=== PATIENT | male | born 1990 | race Asian ===

== ENCOUNTER 2019-02-13 17:34 | Inpatient (IN) ==
[2019-02-13] MEDS ORDERED: SODIUM CHLORIDE 0.9% 1000ML 2,000 ML IV ONE (17:53)
[2019-02-13] MEDS ORDERED: ONDANSETRON INJ 2 MG/ML 2 ML VIAL IV STA (17:53)
[2019-02-13] MEDS ORDERED: NovoLIN-R INSULIN PER UNIT CHARGE IV STA (17:53)
[2019-02-13 18:38] LABS: Hematocrit (blood only) 54.2 % (42-52); Hemoglobin 16.7 g/dL (14.0-18.0); Immature Granulocytes # (auto) 0.03 K/uL (0.00-0.02); Immature Granulocytes % (auto) 0.3 %; Lymphocytes # (auto) 0.74 K/uL (1.2-3.4); Lymphocytes % (auto) 8.1 %; Mean Corpuscular Hemoglobin 33.3 pg (25-34); Mean Corpuscular Hgb Conc 30.8 g/dL (32-36); Mean Platelet Volume 12.7 fL (7.4-10.4); Monocytes # (auto) 0.73 K/uL (0.11-0.59); Neutrophils # (auto) 7.67 K/uL (1.4-6.5); Neutrophils % (auto) 83.6 %; Platelet Count 312 K/uL (130-400); RDW Coefficient of Variation 12.5 % (11.5-14.5); RDW Standard Deviation 49.2 fL (36.4-46.3); Red Blood Count 5.02 M/uL (4.7-6.1); White Blood Count 9.17 K/uL (4.8-10.8)
[2019-02-13 18:46] LABS: Base Excess VBG 2.7 mEq/L; Oxygen Saturation VBG 88.1 %; pH VBG 7.47 (7.36-7.41)
--- NOTE | 2019-02-13 18:56 | Emergency Department Note ---
Entered by Glenda Espinoza acting as a scribe for Edgar Robertson MD History of Present Illness General Chief complaint: Hyperglycemia Stated complaint: KEEPS DRINKING SWEET DRINKS, THINKS HAS DIABETES Time Seen by Provider: 02/13/19 17:49 History of Present Illness Provider complaint: hyperglycemia Onset (ago): unknown Pain Consistency: + other (episode) Quality: + other (hyperglycemia) Associated symptoms: + denies other symptoms (vomiting today) and + other (seeking out sugary drinks for the past week, blurry vision, mouth is atmospheric drier tender than usual, urinating more frequently, vomited once yesterday after he had a sip of water that "tasted weird," thinks he has diabetes becuase his mother and father have it) Treatments prior to arrival: none The patient is a 28 year old male who presents to the ED with complaints of an episode of hyperglycemia that started at an unknown time. The patient states that he has been seeking out sugary drinks for the past week and his vision has been blurry. The patient notes that his mouth has also been much atmospheric drier tender than us ual. The patient states that he has been urinating more frequently and he vomited once yesterday after taking a sip of water that tasted weird. The patient states that he believes he has diabetes because both his mother and father have it. The patient denies vomiting today. The patient denies receiving any treatments prior to arrival. Home Medications Home Medications Medication Instructions Recorded Confirmed Type chlorthalidone 25 mg tablet 25 mg PO DAILY #90 tab 12/29/18 02/13/19 History lisinopril 20 mg tablet 20 mg PO DAILY #90 tab 12/29/18 02/13/19 History Allergies Allergy/AdvReac Type Severity Reaction Status Date / Time No Known Drug Allergies AdvReac Verified 02/13/19 18:39 shellfish derived AdvReac Verified 02/13/19 18:39 Past Med/Surg History Family History Father Diabetes Mother Diabetes Social History Preferred Language: Italian Feels Safe at Home: Yes Smoking Status: Never smoker Review of Systems See HPI for pertinent positives & negatives. and A total of 10 systems reviewed and were otherwise negative Physical Exam Vital Signs Vital Signs - 24 hr 02/13/19 17:38 02/13/19 18:26 02/13/19 18:35 Temperature 36.6 C Temperature Source Oral Sepsis Recent Fever Within 48 Hours No Sepsis New/Unexplained Change in Mental Status No Sepsis Action Taken by Nursing No Action Required Pulse Rate 135 H 135 H 112 H Pulse Rate from SpO2 Sensor Pulse Rhythm Regular Respiratory Rate 18 18 14 Respiratory Effort / Characteristics Non-Labored Spontaneous Respiratory Depth Normal Blood Pressure 134/93 127/91 Blood Pressure Mean 106 103 Blood Pressure Position Sitting Pulse Oximetry 96 96 Oxygen Delivery Method Room Air Room Air Oxygen Flow Rate 02/13/19 18:50 02/13/19 19:00 02/13/19 19:01 Temperature Temperature Source Sepsis Recent Fever Within 48 Hours Sepsis New/Unexplained Change in Mental Status Sepsis Action Taken by Nursing Pulse Rate 110 H 114 H 115 H Pulse Rate from SpO2 Sensor 114 H Pulse Rhythm Respiratory Rate 16 17 16 Respiratory Effort / Characteristics Respiratory Depth Blood Pressure 156/86 H Blood Pressure Mean 109 Blood Pressure Position Pulse Oximetry 78 L 95 95 Oxygen Delivery Method Room Air Nasal Cannula Nasal Cannula Oxygen Flow Rate 2 2 GENERAL: Patient is in no acute distress. HEENT: No acute trauma, normocephalic atraumatic, significantly dry mucous membranes, no nasal congestion, no scleral icterus. NECK: No stridor, no adenopathy, no meningismus, trachea is midline. LUNGS: Clear to auscultation bilaterally, no wheeze, no rhonchi, breath sounds equal. HEART: 2/6 systolic murmur, tachycardic, regular rhythm. ABDOMEN: Soft, nontender, bowel sounds positive, no hernias, no peritonitis. EXTREMITIES: No cyanosis or edema, full range of motion of all the joints without pain or difficulty, no signs for acute trauma. NEUROLOGIC: Oriented x 3, no acute motor or sensory deficits, no focal weakness. SKIN: No rash, no jaundice, no diaphoresis. Course 1750: Past medical records reviewed. The patient was evaluated in room B7. A complete history and physical exam was performed. 1912: The ED electrostatic powder coating technician informed me that the patient's oxygen saturation has been as low as the upper 70's. 1918: I reevaluated the patient and he is doing fine. 1952: I discussed the patient's case with Dr. Zambrano- [facility] Hospitalist. He will evaluate the patient for further management. Consultations Consultation #1: I discussed the patient's case with Dr. Zambrano- [facility] Hospitalist. He will evaluate the patient for further management. Time: 19:53 Administered Medications Insulin Human Regular 250 (units/ Sodium Chloride) 250 mls @ 3.4 mls/hr IV .Q24H CHLOE; Protocol Stop: 03/15/19 20:14 Last Admin: 02/13/19 20:48 Dose: 3.4 units/hr, 3.4 mls/hr Documented by: [id number] Cosigned by: [id number] Discontinued Medications Sodium Chloride (Nss 1000ml) 2,000 mls @ 999 mls/hr IV .Q2H1M ONE Stop: 02/13/19 19:53 Last Infusion: 02/13/19 20:37 Dose: 0 mls/hr Documented by: [id number] Admin: 02/13/19 18:30 Dose: 999 mls/hr Documented by: [id number] Sodium Chloride (Nss 1000ml) 500 mls @ 999 mls/hr IV .Q31M ONE Stop: 02/13/19 19:54 Last Infusion: 02/13/19 21:15 Dose: 0 mls/hr Documented by: [id number] Admin: 02/13/19 20:37 Dose: 999 mls/hr Documented by: [id number] Insulin Human Regular (Novolin R U-100 Per Unit) 10 units IV NOW STA Stop: 02/13/19 17:54 Last Admin: 02/13/19 18:30 Dose: 10 units Documented by: [id number] Cosigned by: [id number] Insulin Human Regular (Novolin R Bolus From Bag) 3.5 units IV NOW STA Stop: 02/13/19 20:57 Last Admin: 02/13/19 20:48 Dose: 3.5 units Documented by: [id number] Cosigned by: [id number] Insulin Human Regular (Novolin R U-100 Per Unit) Confirm Administered Dose 10 units .ROUTE .STK-MED ONE Stop: 02/13/19 21:15 Last Admin: 02/13/19 21:17 Dose: 10 units Documented by: [id number] Cosigned by: [id number] Ondansetron HCl (Zofran) 4 mg IV NOW STA Stop: 02/13/19 17:54 Last Admin: 02/13/19 18:30 Dose: 4 mg Documented by: [id number] Medical Decision Making Differential Diagnosis Differentials include diabetes, dehydration, DKA, hyperglycemia, renal failure, infection, UTI. Medical Records Attestation: I reviewed the patient's medical records. Home Medications Current Medication List: was personally reviewed by me Laboratory Data Attestation: I reviewed the patient's lab results. Result diagrams: 02/13/19 18:22 02/13/19 18:22 Lab Results 02/13/19 02/13/19 02/13/19 Range/Units 17:48 17:50 18:22 WBC (4.8-10.8) K/uL RBC (4.7-6.1) M/uL Hgb (14.0-18.0) g/dL Hct (42-52) % MCV (80-100) fL MCH (25-34) pg MCHC (32-36) g/dL RDW Std Deviation (36.4-46.3) fL RDW Coeff of Amparo (11.5-14.5) % Plt Count (130-400) K/uL MPV (7.4-10.4) fL Immature Gran % (Auto) % Neut % (Auto) % Lymph % (Auto) % [place] % (Auto) % Eos % (Auto) % Baso % (Auto) % Immature Gran # (Auto) (0.00-0.02) K/uL Neut # (Auto) (1.4-6.5) K/uL Lymph # (Auto) (1.2-3.4) K/uL [place] # (Auto) (0.11-0.59) K/uL Eos # (Auto) (0-0.5) K/uL Baso # (Auto) (0-0.2) K/uL VBG pH 7.47 H (7.36-7.41) VBG pCO2 37 L (38-50) mmHg VBG pO2 53 mmHg VBG HCO3 26 mmol/L VBG O2 Saturation 88.1 % VBG Base Excess 2.7 mEq/L Barometric Pressure 732.9 mm/Hg Sodium (136-145) mmol/L Potassium (3.5-5.1) mmol/L Chloride (98-107) mmol/L Carbon Dioxide (21-32) mmol/L Anion Gap (3-11) BUN (7-18) mg/dl Creatinine (0.6-1.4) mg/dl Est Cr Clr Drug Dosing ml/min Est GFR ( Amer) Est GFR (Non-Af Amer) BUN/Creatinine Ratio (10-20) Glucose (70-99) mg/dl POC Glucose > 600 H* > 600 H* (70-99) Calcium (8.5-10.1) mg/dl Phosphorus (2.5-4.9) mg/dl Magnesium (1.8-2.4) mg/dl Total Bilirubin (0.2-1) mg/dl AST (15-37) U/L ALT (12-78) U/L Alkaline Phosphatase (45-117) U/L Total Protein (6.4-8.2) gm/dl Albumin (3.4-5.0) gm/dl Globulin (2.5-4.0) gm/dl Albumin/Globulin Ratio (0.9-2) Beta-Hydroxybutyric Acd (0.2-2.81) mg/dl TSH (0.300-4.500) uIu/ml 02/13/19 02/13/19 02/13/19 Range/Units 18:22 18:22 18:22 WBC 9.17 (4.8-10.8) K/uL RBC 5.02 (4.7-6.1) M/uL Hgb 16.7 (14.0-18.0) g/dL Hct 54.2 H (42-52) % MCV 108.0 H (80-100) fL MCH 33.3 (25-34) pg MCHC 30.8 L (32-36) g/dL RDW Std Deviation 49.2 H (36.4-46.3) fL RDW Coeff of Amparo 12.5 (11.5-14.5) % Plt Count 312 (130-400) K/uL MPV 12.7 H (7.4-10.4) fL Immature Gran % (Auto) 0.3 % Neut % (Auto) 83.6 % Lymph % (Auto) 8.1 % [place] % (Auto) 8.0 % Eos % (Auto) 0.0 % Baso % (Auto) 0.0 % Immature Gran # (Auto) 0.03 H (0.00-0.02) K/uL Neut # (Auto) 7.67 H (1.4-6.5) K/uL Lymph # (Auto) 0.74 L (1.2-3.4) K/uL [place] # (Auto) 0.73 H (0.11-0.59) K/uL Eos # (Auto) 0.00 (0-0.5) K/uL Baso # (Auto) 0.00 (0-0.2) K/uL VBG pH (7.36-7.41) VBG pCO2 (38-50) mmHg VBG pO2 mmHg VBG HCO3 mmol/L VBG O2 Saturation % VBG Base Excess mEq/L Barometric Pressure mm/Hg Sodium 113 L* (136-145) mmol/L Potassium 4.8 (3.5-5.1) mmol/L Chloride 72 L (98-107) mmol/L Carbon Dioxide 25 (21-32) mmol/L Anion Gap 16.0 H (3-11) BUN 46 H (7-18) mg/dl Creatinine 2.74 H (0.6-1.4) mg/dl Est Cr Clr Drug Dosing 41.4 ml/min Est GFR ( Amer) 34.5 Est GFR (Non-Af Amer) 29.7 BUN/Creatinine Ratio 16.9 (10-20) Glucose 1747 H* (70-99) mg/dl POC Glucose (70-99) Calcium 11.6 H (8.5-10.1) mg/dl Phosphorus 3.3 (2.5-4.9) mg/dl Magnesium 2.7 H (1.8-2.4) mg/dl Total Bilirubin 0.8 (0.2-1) mg/dl AST 15 (15-37) U/L ALT 48 (12-78) U/L Alkaline Phosphatase 73 (45-117) U/L Total Protein 8.3 H (6.4-8.2) gm/dl Albumin 4.0 (3.4-5.0) gm/dl Globulin 4.3 H (2.5-4.0) gm/dl Albumin/Globulin Ratio 16.0 H (0.9-2) Beta-Hydroxybutyric Acd 17.98 H (0.2-2.81) mg/dl TSH 1.300 (0.300-4.500) uIu/ml 02/13/19 02/13/19 Range/Units 19:10 19:11 WBC (4.8-10.8) K/uL RBC (4.7-6.1) M/uL Hgb (14.0-18.0) g/dL Hct (42-52) % MCV (80-100) fL MCH (25-34) pg MCHC (32-36) g/dL RDW Std Deviation (36.4-46.3) fL RDW Coeff of Amparo (11.5-14.5) % Plt Count (130-400) K/uL MPV (7.4-10.4) fL Immature Gran % (Auto) % Neut % (Auto) % Lymph % (Auto) % [place] % (Auto) % Eos % (Auto) % Baso % (Auto) % Immature Gran # (Auto) (0.00-0.02) K/uL Neut # (Auto) (1.4-6.5) K/uL Lymph # (Auto) (1.2-3.4) K/uL [place] # (Auto) (0.11-0.59) K/uL Eos # (Auto) (0-0.5) K/uL Baso # (Auto) (0-0.2) K/uL VBG pH (7.36-7.41) VBG pCO2 (38-50) mmHg VBG pO2 mmHg VBG HCO3 mmol/L VBG O2 Saturation % VBG Base Excess mEq/L Barometric Pressure mm/Hg Sodium (136-145) mmol/L Potassium (3.5-5.1) mmol/L Chloride (98-107) mmol/L Carbon Dioxide (21-32) mmol/L Anion Gap (3-11) BUN (7-18) mg/dl Creatinine (0.6-1.4) mg/dl Est Cr Clr Drug Dosing ml/min Est GFR ( Amer) Est GFR (Non-Af Amer) BUN/Creatinine Ratio (10-20) Glucose (70-99) mg/dl POC Glucose > 600 H* > 600 H* (70-99) Calcium (8.5-10.1) mg/dl Phosphorus (2.5-4.9) mg/dl Magnesium (1.8-2.4) mg/dl Total Bilirubin (0.2-1) mg/dl AST (15-37) U/L ALT (12-78) U/L Alkaline Phosphatase (45-117) U/L Total Protein (6.4-8.2) gm/dl Albumin (3.4-5.0) gm/dl Globulin (2.5-4.0) gm/dl Albumin/Globulin Ratio (0.9-2) Beta-Hydroxybutyric Acd (0.2-2.81) mg/dl TSH (0.300-4.500) uIu/ml Imaging Data Radiologist's Impression: Radiology results as stated below per my review and the radiologist's interpretation: XR chest 1V portable HISTORY: 28 years-old Male hypoxia acute hypoxia COMPARISON: None available TECHNIQUE: Portable AP view of the chest FINDINGS: Cardiomediastinal and hilar silhouettes are within normal limits. Lungs are mildly hypoinflated without pneumothorax, pleural effusion, focal airspace consolidation or overt pulmonary edema. 2 mm calcific granuloma of the lateral right lung base. Bones of the chest appear grossly intact. IMPRESSION: No acute process. The above report was generated using voice recognition software. It may contain grammatical, syntax or spelling errors. Electronically signed by: Paulino Quiñones M.D. 02/13/2019 7:02 PM ECG Data Attestation: I personally reviewed and interpreted this ECG as follows: Indication: + tachycardia Rate (beats per minute): 113 Rhythm: + sinus tachycardia ECG ST segments: no ST elevation ECG Findings: + Other (QTC 477); no PACs and no PVCs Blood Pressure Blood Pressure Findings: Elevated blood pressure Blood Pressure Disposition: further management by hospitalist [facility] Narrative There is no leukocytosis or concerning anemia. The patient has a normal platelet count. VBG does not show any acidosis. Renal panel testing shows a markedly high blood sugar at 1747. Sodium was low at 113, likely pseudohyponatremia. There was evidence for acute kidney injury with a creatinine of 2.74. Calcium was high at 11.6. Magnesium was high at 2.7. No worrisome liver enzyme elevation. TSH was normal. Chest film did not show pne umonia or CHF. EKG showed a sinus tachycardia, no acute ischemia. The patient was given 2 L of IV saline, he then received a 500 cc bolus. He received a 10 unit IV dose of insulin and then was placed on an insulin drip. He received IV Zofran for nausea. The patient is a new onset diabetic. He is dehydrated, there is some acute kidney injury, his blood sugar is almost 2000. He is in need of a hospital stay. I spoke to the patient and case management. Patient does seem to be feeling improved since being medicated. His heart rate has improved. He seems more comfortable. I spoke to case management, the on-call hospitalist has been consulted. Impression & Plan Hyperglycemia, BUBBA (acute kidney injury), Dehydration, Hyponatremia, Vomiting, Diabetes mellitus, new onset Critical Care Time Critical Care Time: Yes Total Critical Care Time: 36 I have personally spent 36 minutes of critical care time in the direct management of this patient. This includes bedside care, interpretation of diagnostic studies, and testing, discussion with consultants, patient, and family members, and other required patient management activities. This 36 minutes is in excess of all separately billable procedures. Discharge Plan Visit Data Chief Complaint: Hyperglycemia Stated Complaint: KEEPS DRINKING SWEET DRINKS, THINKS HAS DIABETES ED Provider: Edgar Robertson Discharge Problem: Hyperglycemia, BUBBA (acute kidney injury), Dehydration, Hyponatremia, Vomiting, Diabetes mellitus, new onset Patient Disposition: Being Evaluated by Hospitalist Forms Stand Alone Forms: My [facility] around Us Prescriptions Prescriptions: No Action lisinopril 20 mg tablet 20 mg PO DAILY Qty: 90 RF: 0 chlorthalidone 25 mg tablet 25 mg PO DAILY Qty: 90 RF: 0 Referrals Referrals: [facility] [Primary Care Provider] - Discharge Problem: Vomiting Qualifiers: Vomiting type: unspecified Vomiting Intractability: unspecified Nausea presence: unspecified Qualified Code(s): R11.10 - Vomiting, unspecified The scribe's documentation has been prepared under my direction and personally reviewed by me in its entirety. I confirm that the note above accurately reflects all work, treatment, procedures, and medical decision making performed by me.
--- NOTE | 2019-02-13 19:04 | XRay Report ---
XR chest 1V portable HISTORY: 28 years-old Male hypoxia acute hypoxia COMPARISON: None available TECHNIQUE: Portable AP view of the chest FINDINGS: Cardiomediastinal and hilar silhouettes are within normal limits. Lungs are mildly hypoinflated witho ut pneumothorax, pleural effusion, focal airspace consolidation or overt pulmonary edema. 2 mm calcif ic granuloma of the lateral right lung base. Bones of the chest appear grossly intact. IMPRESSION: No acute process. The above report was generated using voice recognition software. It may contain grammatical, syntax o r spelling errors. Electronically signed by: Paulino Quiñones M.D. 02/13/2019 7:02 PM
[2019-02-13 19:10] LABS: BUN Creatinine Ratio 16.9 (10-20); Bilirubin,Total 0.8 mg/dl (0.2-1); Calcium 11.6 mg/dl (8.5-10.1); Creatinine Clr Calc Pharmacy 41.4 ml/min; Est GFR (African American) 34.5; Est GFR (Non-African American) 29.7; Globulin 4.3 gm/dl (2.5-4.0); Magnesium 2.7 mg/dl (1.8-2.4); Potassium 4.8 mmol/L (3.5-5.1); Thyroid Stimulating Hormone 1.3 uIu/ml (0.300-4.500); Total Protein 8.3 gm/dl (6.4-8.2)
[2019-02-13] MEDS ORDERED: GLUCAGON FOR INJ 1 MG VIAL SQ PRN (19:22)
[2019-02-13] MEDS ORDERED: ED DKA INSULIN DRIP ONE (19:22)
[2019-02-13] MEDS ORDERED: GLUCOSE 40% GEL 15 GM TUBE PO PRN (19:22)
[2019-02-13] MEDS ORDERED: DEXTROSE 50% 50 ML SYRINGE IV PRN (19:22)
[2019-02-13] MEDS ORDERED: GLUCOSE 10 TABS/TUBE PO PRN (19:22)
[2019-02-13] MEDS ORDERED: CARBOHYDRATES FOR HYPOGLYCEMIA PO PRN (19:22)
[2019-02-13] MEDS ORDERED: SODIUM CHLORIDE 0.9% 1000ML 500 ML IV ONE (19:24)
[2019-02-13] MEDS ORDERED: INSULIN REGULAR 250 UNITS in SODIUM CHLORIDE 0.9% 247.5 ML IV SCH (19:30)
[2019-02-13 19:36] LABS: Beta-Hydroxybutyrate 17.98 mg/dl (0.2-2.81)
[2019-02-13] MEDS: INSULIN REGULAR 250 UNITS in SODIUM CHLORIDE 0.9% 247.5 ML IV SCH ×2 (20:48→22:54)
[2019-02-13] MEDS ORDERED: NovoLIN-R BOLUS FROM BAG IV STA (20:56)
[2019-02-13] MEDS ORDERED: INSULIN ASPART 100 UNITS/ML 3 ML PEN SC SCH (21:00)
--- NOTE | 2019-02-13 21:06 | History & Physical Report ---
Date of Service February 13, 2019 Assessment & Plan (1) Hyperglycemia: Mr. Bhatia is a 28-year-old male with a past medical history of hypertension who presented to the emergency department due to a one-week history of polyuria and polydipsia. ED course: 23.5 units IV insulin, 4 mg IV Zofran, 2.5 L normal saline bolus, insulin drip -Admit to ICU -Clinical picture and laboratory values consistent with diabetic ketoacidosis & new onset diabetes mellitus -Glucose level 1747 on admission, with an elevated anion gap of 16, and beta hydroxybutyric acid of 17.98 -Received 2.5 L normal saline bolus in the ER, 23.5 units of IV insulin, and was started on an insulin drip -Will continue insulin drip until glucose level is <200 -Q1h glucose checks -Calculated free water deficit is approximately 10.4 L -We will continue aggressive IV fluid rehydration -HbA1c ordered in ED and pending Hyponatremia -Sodium level 113, corrected to 145 -Start IV fluids with 250 mLs/hour of half-normal saline -Trend BMP every 4 hours, following corrected sodium, in addition to magnesium and phosphorus level -We will add 20 of KCl to IV fluids if repeat BMP at 10PM reveals a drop in potassium (potassium 4.8 on admission) Acute Kidney Injury -Creatinine increased to 2.74 on admission, increased from baseline level of approx 1 -Suspect this is related to prerenal etiology in the setting of severe dehydration -Continue aggressive IV fluid rehydration, and trend BMP every 4 hours -Hold home chlorthalidone and lisinopril Hypertension -Holding home chlorthalidone and lisinopril as above CODE STATUS: Full DVT prophylaxis: SCDs Disposition: Admit to ICU (2) Diabetes mellitus, new onset: (3) Vomiting: (4) Hyponatremia: (5) Dehydration: (6) BUBBA (acute kidney injury): (7) Hypertension: (8) BMI 34.0-34.9,adult: History of Present Illness Chief Complaint: Polyuria, polydipsia Primary Care Provider: [facility] Mr. Bhatia is a 28-year-old male with a past medical history of hypertension who presented to the emergency department due to a one-week history of polyuria and polydipsia. He denies any abdominal pain, but states that he did have one episode of vomiting last night. He notes that he has been seeking out sugary drinks over the past few days, as he has been craving them. He has no prior history of diabetes, however states that both of his parents are diabetics, as well as his grandparents. He called his parents, who thought that he may be exhibiting symptoms of diabetes, and told him to come to the ER. He is unsure whether his parents have type I or type 2 diabetes, but he states that his mother does inject herself with insulin. He also endorses blurry vision. He reports that he has felt unwell recently, and had a sore throat approximately 2 weeks ago, which has since resolved. He has felt fatigued over the past few days, but denies any fever or chills. 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 From [employer]. Non-smoker, does not use alcohol or recreational drugs. Allergies Allergy/AdvReac Type Severity Reaction Status Date / Time No Known Drug Allergies AdvReac Verified 02/13/19 18:39 shellfish derived AdvReac Verified 02/13/19 18:39 Home Medications Home Medications Medication Instructions Recorded Confirmed Type chlorthalidone 25 mg tablet 25 mg PO DAILY #90 tab 12/29/18 02/13/19 History lisinopril 20 mg tablet 20 mg PO DAILY #90 tab 12/29/18 02/13/19 History Past Med/Surg History Family History Father Diabetes Mother Diabetes Social History Preferred Language: Serbian Communication Ability: Effective Protective Services Case Worker Required: No Beliefs That Will Affect Care: None Current Living Situation: Other Current Living Situation Comment: college roommate Feels Safe at Home: Yes Smoking Status: Never smoker Hx Alcohol Use: Yes Alcohol type: beer Hx Substance Use: No Review of Systems Constitutional: + fatigue; no fever and no chills Eyes: Blurry vision Ear, Nose, Mouth, Throat: + dry mouth; no sinus pain/pressure and no sore throat Respiratory: no cough, no dyspnea and no wheezing Cardiovascular: no chest pain, no syncope, no edema and no calf pain Gastrointestinal: + vomiting; no abdominal pain and no change in bowel habits Genitourinary: + urinary frequency; no dysuria and no hematuria Musculoskeletal: no back pain Physical Exam Constitutional: WD/WN, vitals as above + obese, cooperative and comfortable Eyes: PERRL, conjunctivae normal, anicteric sclerae ENMT: external ear and nose normal, oropharynx normal (Dry mucous membranes) Respiratory: normal respiratory effort, lungs clear to auscultation Cardiovascular: RRR, no murmur, no edema Gastrointestinal (Abdomen): Percussion/Palpation: abdomen soft; abdomen nontender, no guarding and abdomen not rigid Skin: no rashes, warm and dry Neurologic: PERRL, EOMI, accommodation nl, no face palsy, no dysarthria Results & Data Vital Signs (Past 12 Hours) Vital Signs Temp Pulse Resp BP Pulse Ox 02/13/19 19:01 115 H 16 95 02/13/19 19:00 114 H 17 156/86 H 95 02/13/19 18:50 110 H 16 78 L 02/13/19 18:35 112 H 14 127/91 02/13/19 18:26 135 H 18 96 02/13/19 17:38 36.6 C 135 H 18 134/93 96 Code Status & VTE Plan VTE Prophylaxis Plan VTE Prophylaxis will be ordered: Yes Critical Care Time Total Critical Care Time: 45 Total critical care time was 45 minutes. Supervising Physician Co-Signing Physician Notes Attending addendum: I have physically seen this patient, have supervised the medical residents activities, and agree with the H&P unless as otherwise noted. Assessment and Plan: Severe hypoglycemia/DKA- Received initial 10 units of regular insulin IV by the ED, and started on insulin drip. Given additional 10 units regular insulin IV now, and continue insulin drip per protocol. Patient is received 2-1/2 L of fluid in the ED, and will continue appropriate rehydration. Pseudohyponatremia/water deficit- As noted above. Follow serial laboratories every 4 hours. Replace potassium and phosphorus appropriately. Acute kidney injury- Creatinine 2.74 upon admission with unknown baseline. Follow serial BMP as noted above. We will order a renal ultrasound if creatinine does not return to normal levels. Patient is admitted to the ICU, with with consult to call or contact centre manager Dr. Schaeffer. Remainder of orders and notations as noted and per ICU staff. PG Care Time/CCT Total # of Minutes Spent Total Time Spent with Patient: Total time spent is greater than 50% in coordination of care (as documented) at patient's floor/unit and/or counseling patient: Total Critical Care Time: 45 Resident Activity Tracking Resident Involvement: Resident Care Provided Care Provided: Adult Hospital Medicine (1) Vomiting Nausea presence: unspecified Vomiting Intractability: unspecified Vomiting type: unspecified Qualified Code(s): R11.10 - Vomiting, unspecified
[2019-02-13] MEDS ORDERED: NovoLIN-R INSULIN PER UNIT CHARGE ONE (21:14)
[2019-02-13 22:39] LABS: Glucose 910 mg/dl (70-99)
--- NOTE | 2019-02-13 23:02 | Critical Care Consultation ---
Date of Consultation February 13, 2019 Assessment & Plan (1) DKA (diabetic ketoacidoses): -- HAGMA likely sec to DKA/HHS with new onset DM-II, blood sugar was 1700. Typically too high for DKA No clear source of infection [place]: Mixed metabolic acidosis plus alkalosis. Likely sec to Ketoacidosis plus vomiting Give IV fluid at least 2 more liters C/w insulin drip, Don't drop blood sugar >100 per hour BMP q4 hrs, Replace K when level between 3.3-5.5, monitor Mag and Phos [place] to subcutaneous insulin once AGAP closes Change IVF to D51/2NS once BS goes <250 Patient will need diabetic education -- BUBBA likely sec to dehydration from polyuria f/u urine lytes monitor BUN/Cr Avoid nephrotoxic medications -- Pseudohyponatraemia corrected Na 140 monitor -- Hyercalcaemia could be a sequela of dehydration Will order PTH as it was high even on previous admission -- Increased MCV f/u Vitamin B12 and folate level -- HTN recommend holding Lisinopril given BUBBA will give Amlodipine instead 10mg -- Secondary hypercoguable state recommend heparin (2) Diabetes mellitus, new onset: (3) Hyponatremia: History of Present Illness Reason for Consultation: DKA History of Present Illness 28 yo male with PMHx of HTN presents to the ED with complains of generalized malaise along with polyuria and polydypsia. He states this has been going on since a week and he has not been able to sleep because of constant urination at night. Has been having urge to drink sugary drinks. Patient denies any fever or chills, no dysuria, no cough, no diarrhea. No abd pain. + nausea and NBNB vomiting. + blurry vision and dizziness noted today for which he decided to come to ED No recent travel hx. No URTI. 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 Familh hx: DM- II in mother and father. Allergies Allergy/AdvReac Type Severity Reaction Status Date / Time No Known Drug Allergies AdvReac Verified 02/13/19 18:39 shellfish derived AdvReac Verified 02/13/19 18:39 Home Medications Home Medications Medication Instructions Recorded Confirmed Type chlorthalidone 25 mg tablet 25 mg PO DAILY #90 tab 12/29/18 02/13/19 History lisinopril 20 mg tablet 20 mg PO DAILY #90 tab 12/29/18 02/13/19 History Patient History Family History Father Diabetes Mother Diabetes Social History Preferred Language: [place] Feels Safe at Home: Yes Smoking Status: Never smoker Physical Exam Physical Exam: Const: NAD HEENT: NC, AT, Dry oral mucosa, PERRLA, EOMi RS: Minimal crackles b/l LL, no wheeze, no rhonchi, Good air entry Abd: Soft NT, ND +BS * 4 Ext: +2 pulses b/l Rad/DP, No edema, No cyanosis Neuro: Awake alert oriented * 3 G/u No moser Skin: no rashes, warm and dry Lymphatic: no cervical or axillary lymphadenopathy Results & Data Vital Signs (Past 12 Hours) Vital Signs Temp Pulse Resp BP Pulse Ox 02/13/19 19:01 115 H 16 95 02/13/19 19:00 114 H 17 156/86 H 95 02/13/19 18:50 110 H 16 78 L 02/13/19 18:35 112 H 14 127/91 02/13/19 18:26 135 H 18 96 02/13/19 17:38 36.6 C 135 H 18 134/93 96 02/13/19 18:22 02/13/19 21:52 Coding Level of Care Code Critical Care 1st 30-74 mins Diagnoses DKA (diabetic ketoacidoses) E11.10 Diabetes mellitus, new onset E11.9 Hyponatremia E87.1 Time Spent (min) 35
[2019-02-13] MEDS ORDERED: ICU PROTOCOL FOR HYPERGLYCEMIA PRN (23:38)
[2019-02-13] MEDS ORDERED: SODIUM CHLORIDE 0.45 % 1,000 ML IV SCH (23:38)
[2019-02-13] MEDS ORDERED: PHARMACY GLYCEMIC MGMT CONSULT PRN (23:43)
[2019-02-13] MEDS: AMLODIPINE BESYLATE 5 MG TAB PO SCH (23:56)
[2019-02-14 00:32] LABS: BUN Creatinine Ratio 18.9 (10-20); Calcium 11.3 mg/dl (8.5-10.1); Est GFR (African American) 50.1; Est GFR (Non-African American) 43.2; Phosphorus 1.4 mg/dl (2.5-4.9); Potassium 3.7 mmol/L (3.5-5.1)
[2019-02-14 00:43] LABS: Folate (Folic Acid) 10.24 ng/ml (>5.38)
[2019-02-14] MEDS ORDERED: POTASSIUM PHOS 3 MMOL/1 ML INFUSION IV STA (00:43)
[2019-02-14 00:55] LABS: Beta-Hydroxybutyrate 5.8 mg/dl (0.2-2.81)
[2019-02-14] MEDS ORDERED: POTASSIUM PHOSPHATE 30 MMOL in SODIUM CHLORIDE 0.9% 500 ML IV ONE (01:00)
[2019-02-14] MEDS: SODIUM CHLOR 0.45% + 20MEQ KCL 20 MEQ/1,000 ML BAG IV SCH ×2 (01:05→04:09)
[2019-02-14 01:46] LABS: Appearance Urine Clear (Clear); Bilirubin Urine Negative (Negative); Blood Urine 2+ (Negative); Color Urine Yellow; Glucose Urine UA 3+ (Negative); Ketones Urine Negative (Negative); Leukocyte Esterase Urine Negative (Negative); Nitrite Urine Negative (Negative); Protein Urine 1+ (Negative); Specific Gravity Urine 1.038 (1.000-1.030); Urobilinogen Urine Negative (Negative)
[2019-02-14 01:51] LABS: Glucose 557 mg/dl (70-99)
[2019-02-14 02:04] LABS: Bacteria Urine Automated Negative (Negative); Cast Urine Automated 0 /lpf (0-5); Epithelial Cell Urine Auto 0-5 /lpf (0-5); RBC Urine Automated 0-4 /hpf (0-4); WBC Urine Automated 0 /hpf (0-5)
[2019-02-14 02:08] LABS: Chloride Random Urine < 10 mmol/L; Creatinine Urine Random 53.3 mg/dl; Potassium Random Urine 15.7 mmol/L; Sodium Random Urine 10 mmol/L; Uric Acid Urine Random 26.9 mg/dl
[2019-02-14 03:35] LABS: BUN Creatinine Ratio 20.2 (10-20); Calcium 10.4 mg/dl (8.5-10.1); Creatinine Clr Calc Pharmacy 60.5 ml/min; Est GFR (Non-African American) 47.5; Magnesium 2.6 mg/dl (1.8-2.4); Potassium 3.9 mmol/L (3.5-5.1)
[2019-02-14 03:42] LABS: Phosphorus 3.3 mg/dl (2.5-4.9)
[2019-02-14] MEDS ORDERED: D5W AND 1/2NSS 1,000 ML IV SCH (06:15)
[2019-02-14] MEDS: D5W AND 1/2NSS + 20MEQ KCL 20 MEQ/1,000 ML BAG IV SCH ×2 (06:31→13:46)
[2019-02-14 07:23] LABS: BUN Creatinine Ratio 22.7 (10-20); Calcium 10.4 mg/dl (8.5-10.1); Creatinine Clr Calc Pharmacy 71.7 ml/min; Est GFR (African American) 67.6; Est GFR (Non-African American) 58.3; Magnesium 2.7 mg/dl (1.8-2.4); Potassium 3.7 mmol/L (3.5-5.1)
[2019-02-14 07:25] LABS: Phosphorus 4.3 mg/dl (2.5-4.9)
--- NOTE | 2019-02-14 08:55 | Hospitalist Progress Note ---
Date of Service February 14, 2019 Assessment & Plan (1) DKA (diabetic ketoacidoses): 28 yo M PMHx HTN here for treatment of DKA vs. HHS in new-onset diabetic. Now with glucose in normal range, resolving BUBBA, and resolving electrolyte abnormalities. Hyperglycemia -ED course: 23.5 units IV insulin, 4 mg IV Zofran, 2.5 L normal saline bolus, insulin drip -Clinical picture and laboratory values suggest DKA vs. HHS. -Glucose level 1747 on admission, with an elevated anion gap of 16, and beta hydroxybutyric acid of 17.98 -Last POC glucose 129 with closing gap of 6. -Insulin Regimen Per Pharmacy: -Lantus 25u x1 now to help convert him off the insulin infsn -NovoLog per scale ACHS or Q6hrs while NPO -Goal Range: Low 140 mg/dL - High 180 mg/dL -Correction Factor: 20 mg/dL/unit -Nutritional / Prandial insulin per carb ratio of 1 unit per 6 grams CHO consumed -ICU d/c'ed IV fluids, transition to DM2 diet. -HbA1c ordered in ED and pending. -Myself and Dr. Strickland had extensive discussion with the patient regarding what dietary choices brought him to this point and what dietary choices moving forward will help him get control of his sugars. -Will schedule outpatient follow up with myself (Dr. Montesinos) at the [facility] following discharge for further management of his DM2. Pt is without PCP at this time. Hyponatremia -Sodium level 147, corrected for hyperglycemia to 147 given near-normal Glu at this time. -Currently on D5 1/2NSS 150mL/hr with 20 meq K. -Trend BMP every 4 hours, following corrected sodium, in addition to magnesium and phosphorus level Acute Kidney Injury -Creatinine increased to 2.74 on admission from baseline of approximately 1.0; now with Cr 1.38. -Suspect this was related to prerenal etiology in the setting of severe dehydration, and is resolving appropriately with hydration. -Continue PO hydration, and trend BMP. -Hold home chlorthalidone and lisinopril. Hypertension -Holding home chlorthalidone and lisinopril as above. -Currently on amlodipine 10mg qAM. BP normotensive. CODE STATUS: Full FEN: DM2 diet DVT prophylaxis: SCDs Disposition: ICU (2) Hyperglycemia: (3) BUBBA (acute kidney injury): (4) Dehydration: (5) Hypertension: (6) Hyponatremia: (7) Hypercalcemia: (8) Diabetes mellitus, new onset: Supervising Physician Co-Signing Physician Notes I personally examined the patient and verified all elliott points of history and exam, discussed case, and agree with decision making with Dr Zhao. feeling better. diet recall suggests a lot of simple starchy and sugary carbs. breakfast yogurt if anything, coffee. but lunch generally some form of fast food/semi-fast food takeout and sweet drinks, dinner frequently take out from [employer] (mac n cheese) - seems willing to make changes - at least with drinks. extensive discussions on DM and reasons to care ("high sugars clog arteries") and discussed the critical importance of lifestyle and control and/or remission of type 2 diabetes. Patient expressed good understanding. vitals noted nad heent nc at mmm breathing unlabored no accessory muscles good effort no focal neuro deficits Hyperglycemic dehydration/acute renal failureimproving. Given his surprising ability to mentate with a sugar of 1700, as well as not having a severe metabolic acidosis at that time, he agree with the ICU assessment this is very likely to be much more of an HHS presentation than a DKA presentation. He is getting aggressive fluid resuscitation, IV insulin. He is now being transitioned to subcu insulin. Overall seems to be improving nicely. Fortunately he shows significant room for improvement in his lifestyle as well as significant motivation to do somaking his long-term prognosis much more favorable given that significant lifestyle change is likely to make a huge difference in his metabolic control. Obviously right now he will need to be on insulin, it is unclear whether he will really need to be on the long-term or not, this probably hinges mostly on how much and how quickly he makes lifestyle change. Certainly whenever he is out of the hospital checking postprandial glucoses to learn from the impact of foods on his blood sugar and metabolism will be of huge help. For now continue current care, continue to educate. Subjective Patient without acute events overnight. Is wake and alert and feeling fairly well. No longer nausea or profound sensation of thirst. Having less polyuria as compared to previous nights where he would wake up to urinate up to 5 times a night. Also denies abdominal pain, changes in bowels, SOB, CP. Denies blurry vision out of his normal at this time (he wears glasses). Reports that his mother had gestational diabetes and while he is unsure when she was diagnosed as DM2 he knows that she is now insulin dependent. Reports that his diet does not have a lot of sugary foods however his vice is sugary beverages like juices (not so much soda per patient). He does not have a PCP in [place]. 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 Upon interview he recalled that the earliest he began to feel "off and needing more fluids" was the day of the [employer] [place] game, where he had less beers at the tailgate than he usually does and instead "kept reaching for the auguste". Review of Systems Constitutional: + fatigue; no fever and no chills Eyes: no blurry vision. Wears glasses at baseline but feels that the blurry vision he had yesterday is much better. Ear, Nose, Mouth, Throat: no dry mouth and no sore throat Respiratory: no cough, no dyspnea and no wheezing Cardiovascular: no chest pain, no palpitations and no edema Gastrointestinal: no abdominal pain, no nausea, no vomiting, no constipation and no diarrhea/loose stools last BM Friday. Normal for him to go a few days between BMs. Genitourinary: + urinary frequency (over the last few days has been waking up in the middle of the night to urinate 4-5 times. Since last night has urinated only twice.); no dysuria Physical Exam Constitutional: WD/WN, vitals as above Eyes: PERRL, conjunctivae normal, anicteric sclerae Respiratory: normal respiratory effort, lungs clear to auscultation Cardiovascular: RRR, no murmur, no edema Gastrointestinal (Abdomen): normal bowel sounds, soft, nontender, no hepatosplenomegaly Skin: no rashes, warm and dry Psychiatric: A+Ox3, euthymic affect Results & Data Vital Signs (Past 12 Hours) Vital Signs Temp Pulse Pulse Resp BP BP Pulse Ox 02/14/19 06:00 81 15 123/86 98 02/14/19 05:00 85 15 146/98 H 99 02/14/19 04:00 36.7 C 81 16 142/101 H 99 02/14/19 03:00 92 H 17 131/85 99 02/14/19 02:04 104 H 23 130/87 93 02/14/19 02:03 101 H 16 96 02/14/19 01:01 EST 116 H 23 135/93 95 02/14/19 01:00 EST 119 H 18 150/97 H 96 02/14/19 01:13 EDT 106 H 14 150/97 H 93 02/14/19 00:01 99 H 16 97 02/14/19 00:00 102 H 21 133/91 95 02/13/19 23:52 37.2 C 110 H 18 106/84 96 02/13/19 23:38 113 H 17 106/84 99 02/13/19 23:36 106 H 18 99 02/13/19 23:07 109 H 18 146/96 H 97 02/13/19 23:00 109 H 7 L 146/96 H 97 02/13/19 22:30 109 H 17 132/96 98 02/13/19 22:00 118 H 12 130/93 98 Laboratory Results Laboratory Results - last 24 hr 02/13/19 02/13/19 02/13/19 17:48 17:50 18:22 WBC RBC Hgb Hct MCV MCH MCHC RDW Std Deviation RDW Coeff of Amparo Plt Count MPV Immature Gran % (Auto) Neut % (Auto) Lymph % (Auto) [place] % (Auto) Eos % (Auto) Baso % (Auto) Immature Gran # (Auto) Neut # (Auto) Lymph # (Auto) [place] # (Auto) Eos # (Auto) Baso # (Auto) VBG pH 7.47 H VBG pCO2 37 L VBG pO2 53 VBG HCO3 26 VBG O2 Saturation 88.1 VBG Base Excess 2.7 Barometric Pressure 732.9 Sodium Potassium Chloride Carbon Dioxide Anion Gap BUN Creatinine Est Cr Clr Drug Dosing Est GFR ( Amer) Est GFR (Non-Af Amer) BUN/Creatinine Ratio Glucose POC Glucose > 600 H* > 600 H* Estimat Average Glucose Hemoglobin A1c Calcium Phosphorus Magnesium Total Bilirubin AST ALT Alkaline Phosphatase Total Protein Albumin Globulin Albumin/Globulin Ratio Vitamin B12 Folate Beta-Hydroxybutyric Acd TSH PTH Intact Urine Color Urine Appearance Urine pH Ur Specific Calvin Urine Protein Urine Glucose (UA) Urine Ketones Urine Blood Urine Nitrite Urine Bilirubin Urine Urobilinogen Ur Leukocyte Esterase Urine WBC (Auto) Urine RBC (Auto) U Hyaline Cast (Auto) U Epithel Cells (Auto) Urine Bacteria (Auto) Urine Osmolality Ur Random Creatinine Ur Random Sodium Ur Random Potassium Ur Random Chloride Ur Random Uric Acid Nasal Screen MRSA (PCR) 02/13/19 02/13/19 02/13/19 18:22 18:22 18:22 WBC 9.17 RBC 5.02 Hgb 16.7 Hct 54.2 H MCV 108.0 H MCH 33.3 MCHC 30.8 L RDW Std Deviation 49.2 H RDW Coeff of Amparo 12.5 Plt Count 312 MPV 12.7 H Immature Gran % (Auto) 0.3 Neut % (Auto) 83.6 Lymph % (Auto) 8.1 [place] % (Auto) 8.0 Eos % (Auto) 0.0 Baso % (Auto) 0.0 Immature Gran # (Auto) 0.03 H Neut # (Auto) 7.67 H Lymph # (Auto) 0.74 L [place] # (Auto) 0.73 H Eos # (Auto) 0.00 Baso # (Auto) 0.00 VBG pH VBG pCO2 VBG pO2 VBG HCO3 VBG O2 Saturation VBG Base Excess Barometric Pressure Sodium 113 L* Potassium 4.8 Chloride 72 L Carbon Dioxide 25 Anion Gap 16.0 H BUN 46 H Creatinine 2.74 H Est Cr Clr Drug Dosing 41.4 Est GFR ( Amer) 34.5 Est GFR (Non-Af Amer) 29.7 BUN/Creatinine Ratio 16.9 Glucose 1747 H* POC Glucose Estimat Average Glucose Pending Hemoglobin A1c Pending Calcium 11.6 H Phosphorus Magnesium 2.7 H Total Bilirubin 0.8 AST 15 ALT 48 Alkaline Phosphatase 73 Total Protein 8.3 H Albumin 4.0 Globulin 4.3 H Albumin/Globulin Ratio 16.0 H Vitamin B12 Folate Beta-Hydroxybutyric Acd 17.98 H TSH 1.300 PTH Intact Urine Color Urine Appearance Urine pH Ur Specific Calvin Urine Protein Urine Glucose (UA) Urine Ketones Urine Blood Urine Nitrite Urine Bilirubin Urine Urobilinogen Ur Leukocyte Esterase Urine WBC (Auto) Urine RBC (Auto) U Hyaline Cast (Auto) U Epithel Cells (Auto) Urine Bacteria (Auto) Urine Osmolality Ur Random Creatinine Ur Random Sodium Ur Random Potassium Ur Random Chloride Ur Random Uric Acid Nasal Screen MRSA (PCR) 02/13/19 02/13/19 02/13/19 18:22 19:10 19:11 WBC RBC Hgb Hct MCV MCH MCHC RDW Std Deviation RDW Coeff of Amparo Plt Count MPV Immature Gran % (Auto) Neut % (Auto) Lymph % (Auto) [place] % (Auto) Eos % (Auto) Baso % (Auto) Immature Gran # (Auto) Neut # (Auto) Lymph # (Auto) [place] # (Auto) Eos # (Auto) Baso # (Auto) VBG pH VBG pCO2 VBG pO2 VBG HCO3 VBG O2 Saturation VBG Base Excess Barometric Pressure Sodium Potassium Chloride Carbon Dioxide Anion Gap BUN Creatinine Est Cr Clr Drug Dosing Est GFR ( Amer) Est GFR (Non-Af Amer) BUN/Creatinine Ratio Glucose POC Glucose > 600 H* > 600 H* Estimat Average Glucose Hemoglobin A1c Calcium Phosphorus 3.3 Magnesium Total Bilirubin AST ALT Alkaline Phosphatase Total Protein Albumin Globulin Albumin/Globulin Ratio Vitamin B12 Folate Beta-Hydroxybutyric Acd TSH PTH Intact Urine Color Urine Appearance Urine pH Ur Specific Calvin Urine Protein Urine Glucose (UA) Urine Ketones Urine Blood Urine Nitrite Urine Bilirubin Urine Urobilinogen Ur Leukocyte Esterase Urine WBC (Auto) Urine RBC (Auto) U Hyaline Cast (Auto) U Epithel Cells (Auto) Urine Bacteria (Auto) Urine Osmolality Ur Random Creatinine Ur Random Sodium Ur Random Potassium Ur Random Chloride Ur Random Uric Acid Nasal Screen MRSA (PCR) 02/13/19 02/13/19 02/13/19 21:52 23:41 23:52 WBC RBC Hgb Hct MCV MCH MCHC RDW Std Deviation RDW Coeff of Amparo Plt Count MPV Immature Gran % (Auto) Neut % (Auto) Lymph % (Auto) [place] % (Auto) Eos % (Auto) Baso % (Auto) Immature Gran # (Auto) Neut # (Auto) Lymph # (Auto) [place] # (Auto) Eos # (Auto) Baso # (Auto) VBG pH VBG pCO2 VBG pO2 VBG HCO3 VBG O2 Saturation VBG Base Excess Barometric Pressure Sodium Potassium Chloride Carbon Dioxide Anion Gap BUN Creatinine Est Cr Clr Drug Dosing Est GFR ( Amer) Est GFR (Non-Af Amer) BUN/Creatinine Ratio Glucose 910 H* POC Glucose Estimat Average Glucose Hemoglobin A1c Calcium Phosphorus Magnesium Total Bilirubin AST ALT Alkaline Phosphatase Total Protein Albumin Globulin Albumin/Globulin Ratio Vitamin B12 Folate Beta-Hydroxybutyric Acd TSH PTH Intact 23.4 Urine Color Urine Appearance Urine pH Ur Specific Calvin Urine Protein Urine Glucose (UA) Urine Ketones Urine Blood Urine Nitrite Urine Bilirubin Urine Urobilinogen Ur Leukocyte Esterase Urine WBC (Auto) Urine RBC (Auto) U Hyaline Cast (Auto) U Epithel Cells (Auto) Urine Bacteria (Auto) Urine Osmolality Ur Random Creatinine Ur Random Sodium Ur Random Potassium Ur Random Chloride Ur Random Uric Acid Nasal Screen MRSA (PCR) Negative 02/13/19 02/13/19 02/13/19 23:52 23:52 23:59 WBC RBC Hgb Hct MCV MCH MCHC RDW Std Deviation RDW Coeff of Amparo Plt Count MPV Immature Gran % (Auto) Neut % (Auto) Lymph % (Auto) [place] % (Auto) Eos % (Auto) Baso % (Auto) Immature Gran # (Auto) Neut # (Auto) Lymph # (Auto) [place] # (Auto) Eos # (Auto) Baso # (Auto) VBG pH VBG pCO2 VBG pO2 VBG HCO3 VBG O2 Saturation VBG Base Excess Barometric Pressure Sodium 138 D Potassium 3.7 D Chloride 98 Carbon Dioxide 31 Anion Gap 9.0 BUN 38 H Creatinine 2.01 H D Est Cr Clr Drug Dosing 56.0 Est GFR ( Amer) 50.1 Est GFR (Non-Af Amer) 43.2 BUN/Creatinine Ratio 18.9 Glucose 682 H* POC Glucose > 600 H* Estimat Average Glucose Hemoglobin A1c Calcium 11.3 H Phosphorus 1.4 L* D Magnesium 3.0 H Total Bilirubin AST ALT Alkaline Phosphatase Total Protein Albumin Globulin Albumin/Globulin Ratio Vitamin B12 876 Folate 10.24 Beta-Hydroxybutyric Acd 5.80 H TSH PTH Intact Urine Color Urine Appearance Urine pH Ur Specific Calvin Urine Protein Urine Glucose (UA) Urine Ketones Urine Blood Urine Nitrite Urine Bilirubin Urine Urobilinogen Ur Leukocyte Esterase Urine WBC (Auto) Urine RBC (Auto) U Hyaline Cast (Auto) U Epithel Cells (Auto) Urine Bacteria (Auto) Urine Osmolality Ur Random Creatinine Ur Random Sodium Ur Random Potassium Ur Random Chloride Ur Random Uric Acid Nasal Screen MRSA (PCR) 02/14/19 02/14/19 02/14/19 01:00 EST 01:00 EST 01:00 EST WBC RBC Hgb Hct MCV MCH MCHC RDW Std Deviation RDW Coeff of Amparo Plt Count MPV Immature Gran % (Auto) Neut % (Auto) Lymph % (Auto) [place] % (Auto) Eos % (Auto) Baso % (Auto) Immature Gran # (Auto) Neut # (Auto) Lymph # (Auto) [place] # (Auto) Eos # (Auto) Baso # (Auto) VBG pH VBG pCO2 VBG pO2 VBG HCO3 VBG O2 Saturation VBG Base Excess Barometric Pressure Sodium Potassium Chloride Carbon Dioxide Anion Gap BUN Creatinine Est Cr Clr Drug Dosing Est GFR ( Amer) Est GFR (Non-Af Amer) BUN/Creatinine Ratio Glucose POC Glucose Estimat Average Glucose Hemoglobin A1c Calcium Phosphorus Magnesium Total Bilirubin AST ALT Alkaline Phosphatase Total Protein Albumin Globulin Albumin/Globulin Ratio Vitamin B12 Folate Beta-Hydroxybutyric Acd TSH PTH Intact Urine Color Yellow Urine Appearance Clear Urine pH 6.0 Ur Specific Calvin 1.038 H Urine Protein 1+ H Urine Glucose (UA) 3+ H Urine Ketones Negative Urine Blood 2+ H Urine Nitrite Negative Urine Bilirubin Negative Urine Urobilinogen Negative Ur Leukocyte Esterase Negative Urine WBC (Auto) 0 Urine RBC (Auto) 0-4 U Hyaline Cast (Auto) 0 U Epithel Cells (Auto) 0-5 Urine Bacteria (Auto) Negative Urine Osmolality 665 Ur Random Creatinine 53.3 Ur Random Sodium 10 Ur Random Potassium 15.7 Ur Random Chloride < 10 Ur Random Uric Acid 26.9 Nasal Screen MRSA (PCR) 02/14/19 02/14/19 02/14/19 01:17 EST 01:35 EST 02:24 WBC RBC Hgb Hct MCV MCH MCHC RDW Std Deviation RDW Coeff of Amparo Plt Count MPV Immature Gran % (Auto) Neut % (Auto) Lymph % (Auto) [place] % (Auto) Eos % (Auto) Baso % (Auto) Immature Gran # (Auto) Neut # (Auto) Lymph # (Auto) [place] # (Auto) Eos # (Auto) Baso # (Auto) VBG pH VBG pCO2 VBG pO2 VBG HCO3 VBG O2 Saturation VBG Base Excess Barometric Pressure Sodium 144 Potassium 3.9 Chloride 104 Carbon Dioxide 32 Anion Gap 8.0 BUN 38 H Creatinine 1.86 H Est Cr Clr Drug Dosing 60.5 Est GFR ( Amer) 55.0 Est GFR (Non-Af Amer) 47.5 BUN/Creatinine Ratio 20.2 H Glucose 557 H* 382 H* POC Glucose 491 H* Estimat Average Glucose Hemoglobin A1c Calcium 10.4 H Phosphorus 3.3 D Magnesium 2.6 H Total Bilirubin AST ALT Alkaline Phosphatase Total Protein Albumin Globulin Albumin/Globulin Ratio Vitamin B12 Folate Beta-Hydroxybutyric Acd TSH PTH Intact Urine Color Urine Appearance Urine pH Ur Specific Calvin Urine Protein Urine Glucose (UA) Urine Ketones Urine Blood Urine Nitrite Urine Bilirubin Urine Urobilinogen Ur Leukocyte Esterase Urine WBC (Auto) Urine RBC (Auto) U Hyaline Cast (Auto) U Epithel Cells (Auto) Urine Bacteria (Auto) Urine Osmolality Ur Random Creatinine Ur Random Sodium Ur Random Potassium Ur Random Chloride Ur Random Uric Acid Nasal Screen MRSA (PCR) 02/14/19 02/14/19 02/14/19 02:24 02:29 03:35 WBC RBC Hgb Hct MCV MCH MCHC RDW Std Deviation RDW Coeff of Amparo Plt Count MPV Immature Gran % (Auto) Neut % (Auto) Lymph % (Auto) [place] % (Auto) Eos % (Auto) Baso % (Auto) Immature Gran # (Auto) Neut # (Auto) Lymph # (Auto) [place] # (Auto) Eos # (Auto) Baso # (Auto) VBG pH VBG pCO2 VBG pO2 VBG HCO3 VBG O2 Saturation VBG Base Excess Barometric Pressure Sodium Potassium Chloride Carbon Dioxide Anion Gap BUN Creatinine Est Cr Clr Drug Dosing Est GFR ( Amer) Est GFR (Non-Af Amer) BUN/Creatinine Ratio Glucose POC Glucose 342 H* 359 H* Estimat Average Glucose Hemoglobin A1c Calcium Phosphorus Magnesium Total Bilirubin AST ALT Alkaline Phosphatase Total Protein Albumin Globulin Albumin/Globulin Ratio Vitamin B12 Folate Beta-Hydroxybutyric Acd 2.97 H TSH PTH Intact Urine Color Urine Appearance Urine pH Ur Specific Calvin Urine Protein Urine Glucose (UA) Urine Ketones Urine Blood Urine Nitrite Urine Bilirubin Urine Urobilinogen Ur Leukocyte Esterase Urine WBC (Auto) Urine RBC (Auto) U Hyaline Cast (Auto) U Epithel Cells (Auto) Urine Bacteria (Auto) Urine Osmolality Ur Random Creatinine Ur Random Sodium Ur Random Potassium Ur Random Chloride Ur Random Uric Acid Nasal Screen MRSA (PCR) 02/14/19 02/14/19 02/14/19 04:34 05:33 06:26 WBC RBC Hgb Hct MCV MCH MCHC RDW Std Deviation RDW Coeff of Amparo Plt Count MPV Immature Gran % (Auto) Neut % (Auto) Lymph % (Auto) [place] % (Auto) Eos % (Auto) Baso % (Auto) Immature Gran # (Auto) Neut # (Auto) Lymph # (Auto) [place] # (Auto) Eos # (Auto) Baso # (Auto) VBG pH VBG pCO2 VBG pO2 VBG HCO3 VBG O2 Saturation VBG Base Excess Barometric Pressure Sodium 147 H Potassium 3.7 Chloride 109 H Carbon Dioxide 32 Anion Gap 6.0 BUN 36 H Creatinine 1.57 H Est Cr Clr Drug Dosing 71.7 Est GFR ( Amer) 67.6 Est GFR (Non-Af Amer) 58.3 BUN/Creatinine Ratio 22.7 H Glucose 121 H POC Glucose 324 H* 214 H Estimat Average Glucose Hemoglobin A1c Calcium 10.4 H Phosphorus 4.3 D Magnesium 2.7 H Total Bilirubin AST ALT Alkaline Phosphatase Total Protein Albumin Globulin Albumin/Globulin Ratio Vitamin B12 Folate Beta-Hydroxybutyric Acd TSH PTH Intact Urine Color Urine Appearance Urine pH Ur Specific Calvin Urine Protein Urine Glucose (UA) Urine Ketones Urine Blood Urine Nitrite Urine Bilirubin Urine Urobilinogen Ur Leukocyte Esterase Urine WBC (Auto) Urine RBC (Auto) U Hyaline Cast (Auto) U Epithel Cells (Auto) Urine Bacteria (Auto) Urine Osmolality Ur Random Creatinine Ur Random Sodium Ur Random Potassium Ur Random Chloride Ur Random Uric Acid Nasal Screen MRSA (PCR) 02/14/19 02/14/19 06:30 07:32 WBC RBC Hgb Hct MCV MCH MCHC RDW Std Deviation RDW Coeff of Amparo Plt Count MPV Immature Gran % (Auto) Neut % (Auto) Lymph % (Auto) [place] % (Auto) Eos % (Auto) Baso % (Auto) Immature Gran # (Auto) Neut # (Auto) Lymph # (Auto) [place] # (Auto) Eos # (Auto) Baso # (Auto) VBG pH VBG pCO2 VBG pO2 VBG HCO3 VBG O2 Saturation VBG Base Excess Barometric Pressure Sodium Potassium Chloride Carbon Dioxide Anion Gap BUN Creatinine Est Cr Clr Drug Dosing Est GFR ( Amer) Est GFR (Non-Af Amer) BUN/Creatinine Ratio Glucose POC Glucose 163 H 129 H Estimat Average Glucose Hemoglobin A1c Calcium Phosphorus Magnesium Total Bilirubin AST ALT Alkaline Phosphatase Total Protein Albumin Globulin Albumin/Globulin Ratio Vitamin B12 Folate Beta-Hydroxybutyric Acd TSH PTH Intact Urine Color Urine Appearance Urine pH Ur Specific Calvin Urine Protein Urine Glucose (UA) Urine Ketones Urine Blood Urine Nitrite Urine Bilirubin Urine Urobilinogen Ur Leukocyte Esterase Urine WBC (Auto) Urine RBC (Auto) U Hyaline Cast (Auto) U Epithel Cells (Auto) Urine Bacteria (Auto) Urine Osmolality Ur Random Creatinine Ur Random Sodium Ur Random Potassium Ur Random Chloride Ur Random Uric Acid Nasal Screen MRSA (PCR) Medications Administered Current Medications Amlodipine Besylate (Norvasc) 10 mg PO QAM [facility] Stop: 03/15/19 23:19 Last Admin: 02/13/19 23:56 Dose: Not Given Documented by: Dextrose (Dextrose 50%) 25 - 50 ml IV UD PRN; Protocol PRN Reason: Hypoglycemia Protocol Stop: 03/15/19 19:21 Glucagon (Glucagen) 1 mg SQ UD PRN; Protocol PRN Reason: Hypoglycemia Protocol Stop: 03/15/19 19:21 Glucose (Dex4 Glucose) 4 - 8 tabs PO UD PRN; Protocol PRN Reason: Hypoglycemia Protocol Stop: 03/15/19 19:21 Glucose (Glucose 40%) 15 - 30 gm PO UD PRN; Protocol PRN Reason: Hypoglycemia Protocol Stop: 03/15/19 19:21 Insulin Human Regular 250 (units/ Sodium Chloride) 250 mls @ 5 mls/hr IV .Q24H CHLOE; Protocol Stop: 03/15/19 20:14 Last Titration: 02/14/19 08:33 Dose: 5 units/hr, 5 mls/hr Documented by: Potassium Chloride/Dextrose/Sod Cl (D5w And 1/2nss + 20meq Kcl) 20 meq in 1,000 mls @ 150 mls/hr IV .Q6H40M [facility] Stop: 03/16/19 06:14 Last Admin: 02/14/19 06:31 Dose: 150 mls/hr Documented by: Miscellaneous (Carbohydrates For Hypoglycemia) 15 - 30 gm PO UD PRN PRN Reason: Hypoglycemia Protocol Stop: 03/15/19 19:21 Miscellaneous (Icu Protocol For Hyperglycemia) 1 ea N/A PRN PRN; Protocol PRN Reason: Hyperglycemia Protocol Stop: 02/15/19 23:37 Miscellaneous Information (Consult Glycemic Management Pharmacy) 1 ea N/A UD PRN PRN Reason: Consult Stop: 03/15/19 23:42 PG Care Time/CCT Total # of Minutes Spent Total Time Spent with Patient: Total time spent is greater than 50% in coordination of care (as documented) at patient's floor/unit and/or counseling patient: Resident Activity Tracking Resident Involvement: Resident Care Provided Care Provided: Adult Hospital Medicine (1) DKA (diabetic ketoacidoses) Diabetes mellitus complication detail: without coma Diabetes mellitus type: type 2 Qualified Code(s): E11.10 - Type 2 diabetes mellitus with ketoacidosis without coma
--- NOTE | 2019-02-14 09:11 | Critical Care Progress Note ---
Date of Service February 14, 2019 Assessment & Plan (1) DKA (diabetic ketoacidoses): -- S/p HAGMA likely sec to HHS (? DKA) with new onset DM-II, initial blood sugar was 1700. Typically too high for DKA No clear source of infection Initial Delta Delta: Mixed metabolic acidosis plus alkalosis. Likely sec to Ketoacidosis plus vomiting C/w insulin drip, Don't drop blood sugar >100 per hour BMP q4 hrs, Replace K when level between 3.3-5.5, monitor Mag and Phos Change IVF to D51/2NS once BS goes <250 Anion gap closed. Will bridge to subcutaneous insulin. Patient got approximately 75 units of IV insulin in the last 24 hours. Patient is insulin naive as new onset DM. Recommend around 30 units q12hrs lantus. Pharmacy notified about bridging. Patient to get diabetic education -- BUBBA likely sec to dehydration from polyuria FeNa: 0.5% --> Pre renal monitor BUN/Cr--> improving Avoid nephrotoxic medications -- Hypernatraemia FWD 2.5 liters Give Free water PO. Patient has been drinking water -- High Normal Calcium could be a sequela of dehydration Patient is always so on chlorthalidone which is a thiazide diuretic, it can cause hypercalcemia and even hypoglycemia. PTH is normal, could represent primary hyperparathyroidism -- Increased MCV Vitamin B12 and folate within normal limits -- HTN recommend holding Lisinopril given BUBBA On amlodipine instead 10mg -- Secondary hypercoguable state recommend heparin (2) Diabetes mellitus, new onset: (3) Hyponatremia: Subjective Patient seen and examined at bedside. No acute distress, no adverse events overnight. Clinically patient doing much better. He is feeling more energetic. Denies any dizziness, no nausea or vomiting. No headache, no chest pain, no shortness of breath. Review of Systems Review of Systems: All systems reviewed & are unremarkable except as noted in HPI & below Physical Exam Physical Exam: Const: NAD HEENT: NC, AT, PERRLA, EOMi RS: Good air entry bilaterally, no wheeze, no rhonchi, no crackles Abd: Soft NT, ND +BS * 4 Ext: +2 pulses b/l Rad/DP, No edema, No cyanosis Neuro: Awake alert oriented * 3 G/u No moser Skin: no rashes, warm and dry Lymphatic: no cervical or axillary lymphadenopathy Results & Data Vital Signs (Past 12 Hours) Vital Signs Temp Pulse Pulse Resp BP BP Pulse Ox 02/14/19 06:00 81 15 123/86 98 02/14/19 05:00 85 15 146/98 H 99 02/14/19 04:00 36.7 C 81 16 142/101 H 99 02/14/19 03:00 92 H 17 131/85 99 02/14/19 02:04 104 H 23 130/87 93 02/14/19 02:03 101 H 16 96 02/14/19 01:01 EST 116 H 23 135/93 95 02/14/19 01:00 EST 119 H 18 150/97 H 96 02/14/19 01:13 EDT 106 H 14 150/97 H 93 02/14/19 00:01 99 H 16 97 02/14/19 00:00 102 H 21 133/91 95 02/13/19 23:52 37.2 C 110 H 18 106/84 96 02/13/19 23:38 113 H 17 106/84 99 02/13/19 23:36 106 H 18 99 02/13/19 23:07 109 H 18 146/96 H 97 02/13/19 23:00 109 H 7 L 146/96 H 97 02/13/19 22:30 109 H 17 132/96 98 02/13/19 18:22 02/14/19 06:26 Coding Level of Care Code Established Pt Critical Care 1st 30-74 mins Patient Type Established Diagnoses DKA (diabetic ketoacidoses) E11.10 Diabetes mellitus complication detail: without coma Diabetes mellitus type: type 2 Diabetes mellitus, new onset E11.9 Hyponatremia E87.1 Time Spent (min) 40 (1) DKA (diabetic ketoacidoses) Diabetes mellitus complication detail: without coma Diabetes mellitus type: type 2 Qualified Code(s): E11.10 - Type 2 diabetes mellitus with ketoacidosis without coma
[2019-02-14] MEDS: AMLODIPINE BESYLATE 5 MG TAB PO SCH (09:40)
[2019-02-14] MEDS ORDERED: INSULIN GLARGINE SOLOSTAR 100 UNITS/ML 3 ML PEN SC STA (09:42)
--- NOTE | 2019-02-14 10:24 | Pharmacy Report ---
Glycemic Control Consultation - Date of Service February 14, 2019 - Scope Scope: Glycemic Pharmacist consulted by Dr Downs on 02/13/19 for glycemic control and to write orders per [facility] inpatient glycemic control protocol - Objective Weight: 88.5 kg Accuchecks BSG (last 24hrs): 02/13/19 02/13/19 02/13/19 17:48 17:50 18:22 Glucose 1747 H* POC Glucose > 600 H* > 600 H* 02/13/19 02/13/19 02/13/19 19:10 19:11 21:52 Glucose 910 H* POC Glucose > 600 H* > 600 H* 02/13/19 02/13/19 02/14/19 23:52 23:59 01:17 EST Glucose 682 H* 557 H* POC Glucose > 600 H* 02/14/19 02/14/19 02/14/19 01:35 EST 02:24 02:29 Glucose 382 H* POC Glucose 491 H* 342 H* 02/14/19 02/14/19 02/14/19 03:35 04:34 05:33 Glucose POC Glucose 359 H* 324 H* 214 H 02/14/19 02/14/19 02/14/19 06:26 06:30 07:32 Glucose 121 H POC Glucose 163 H 129 H 02/14/19 02/14/19 08:32 09:31 Glucose POC Glucose 119 H 131 H Laboratory Data (last 24hrs): 02/13/19 02/13/19 02/13/19 18:22 21:52 23:52 Potassium 4.8 3.7 D Carbon Dioxide 25 31 Anion Gap 16.0 H 9.0 Creatinine 2.74 H 2.01 H D Est Cr Clr Drug Dosing 41.4 56.0 Beta-Hydroxybutyric Acd 17.98 H 5.80 H 02/14/19 02/14/19 02/14/19 01:17 EST 02:24 02:24 Potassium 3.9 Carbon Dioxide 32 Anion Gap 8.0 Creatinine 1.86 H Est Cr Clr Drug Dosing 60.5 Beta-Hydroxybutyric Acd 2.97 H 02/14/19 06:26 Potassium 3.7 Carbon Dioxide 32 Anion Gap 6.0 Creatinine 1.57 H Est Cr Clr Drug Dosing 71.7 Beta-Hydroxybutyric Acd - Recent Pertinent Medications Outpatient Anti-diabetic Regimen: * New onset * A1c = ordered for 02/15/19 - Assessment & Plan Assessment & Plan: ASSESSMENT: * Mr. Bhatia is a 28yo M p/w polyuria, polydipsia, fatigue, weight loss over subsequent days. PMHx consistent with HTN: he has been fluctuating bt normotension and stage I HTN while admitted. Clinical picture strongly indicative of HHS rather than DKA. In ER p/w BSG of 1747mg/dL, profound dehy dration/free water deficit, e-lyte abnormalities. Serum osmolarity of 339 initially. BSGs and osmolality have returned to normal. At this time he has received about 8L of IVFs. Rehydration continues. Q4 PRP ordered. NPO ---> T2DM diet * A1C is ordered for 02/15/19. Unsure of his diabetic status at this juncture. Outpt regimen/recs to be delineated as more information becomes available. PLAN FOR INPATIENT GLYCEMIC CONTROL: * Insulin infsn started in the ER and continued overnight: at this point in time insulin gtt rate is 5u/hr. * Basal insulin * Lantus 25u x1 now to help convert him off the insulin infsn * Bolus insulin * NovoLog per scale ACHS or Q6hrs while NPO * Goal Range: Low 140 mg/dL - High 180 mg/dL * Correction Factor: 20 mg/dL/unit * Nutritional / Prandial insulin per carb ratio of 1 unit per 6 grams CHO consumed * Please note that the plan above was derived based on current level of insulin resistance and hospital stress. These recommendations are appropriate for inpatient admission only. Plan of care upon discharge will need to be reassessed to avoid potential outpatient hypo/hyperglycemia. Thank you.
[2019-02-14 11:22] LABS: BUN Creatinine Ratio 24.2 (10-20); Calcium 9.7 mg/dl (8.5-10.1); Creatinine Clr Calc Pharmacy 81.6 ml/min; Est GFR (Non-African American) 68.1; Magnesium 2.3 mg/dl (1.8-2.4); Potassium 3.5 mmol/L (3.5-5.1)
[2019-02-14 11:29] LABS: Phosphorus 2.4 mg/dl (2.5-4.9)
[2019-02-14] MEDS ORDERED: INSULIN ASPART 100 UNITS/ML 3 ML PEN SC SCH (11:30)
[2019-02-14] MEDS: INSULIN ASPART 100 UNITS/ML 3 ML PEN SC SCH ×2 (16:59→21:00)
[2019-02-14] MEDS: METOPROLOL TARTRATE 25 MG TAB PO SCH ×2 (17:26→20:57)
[2019-02-14] MEDS: HEPARIN SOD 5,000 UNIT/0.5 ML VIAL SQ SCH (20:56)
[2019-02-14] MEDS: INSULIN GLARGINE SOLOSTAR 100 UNITS/ML 3 ML PEN SC SCH (20:58)
[2019-02-15 04:51] LABS: BUN Creatinine Ratio 18.4 (10-20); Calcium 8.8 mg/dl (8.5-10.1); Creatinine Clr Calc Pharmacy 102.3 ml/min; Est GFR (African American) 103.9; Est GFR (Non-African American) 89.6; Phosphorus 2.4 mg/dl (2.5-4.9); Potassium 3.6 mmol/L (3.5-5.1)
[2019-02-15 05:10] LABS: Beta-Hydroxybutyrate 23.1 mg/dl (0.2-2.81)
[2019-02-15 05:18] LABS: Basophils # (auto) 0.03 K/uL (0-0.2); Basophils % (auto) 0.4 %; Eosinophils # (auto) 0.09 K/uL (0-0.5); Eosinophils % (auto) 1.1 %; Hematocrit (blood only) 39.5 % (42-52); Hemoglobin 13.9 g/dL (14.0-18.0); Immature Granulocytes # (auto) 0.02 K/uL (0.00-0.02); Immature Granulocytes % (auto) 0.2 %; Lymphocytes # (auto) 3.61 K/uL (1.2-3.4); Lymphocytes % (auto) 42.9 %; Mean Corpuscular Hemoglobin 32.2 pg (25-34); Mean Corpuscular Hgb Conc 35.2 g/dL (32-36); Mean Corpuscular Volume 91.4 fL (80-100); Mean Platelet Volume 11.1 fL (7.4-10.4); Monocytes # (auto) 0.48 K/uL (0.11-0.59); Monocytes % (auto) 5.7 %; Neutrophils # (auto) 4.19 K/uL (1.4-6.5); Neutrophils % (auto) 49.7 %; Platelet Count 222 K/uL (130-400); RDW Coefficient of Variation 11.9 % (11.5-14.5); RDW Standard Deviation 40.4 fL (36.4-46.3); Red Blood Count 4.32 M/uL (4.7-6.1); White Blood Count 8.42 K/uL (4.8-10.8)
[2019-02-15] MEDS: INSULIN ASPART 100 UNITS/ML 3 ML PEN SC SCH ×6 (05:49→23:50)
[2019-02-15 06:19] LABS: Estimated Average Glucose 324 mg/dl; Hemoglobin A1C 12.9 % (4.5-5.6)
[2019-02-15] MEDS: HEPARIN SOD 5,000 UNIT/0.5 ML VIAL SQ SCH ×2 (08:07→21:27)
[2019-02-15] MEDS: METOPROLOL TARTRATE 25 MG TAB PO SCH ×2 (08:07→21:27)
[2019-02-15] MEDS: AMLODIPINE BESYLATE 5 MG TAB PO SCH (08:07)
[2019-02-15] MEDS: INSULIN GLARGINE SOLOSTAR 100 UNITS/ML 3 ML PEN SC SCH (08:07)
--- NOTE | 2019-02-15 08:27 | Critical Care Progress Note ---
Date of Service February 15, 2019 Assessment & Plan (1) DKA (diabetic ketoacidoses): (2) Hyperglycemia: Mr. Bhatia is a 28-year-old male with a past medical history of hypertension who presented to the emergency department due to a one-week history of polyuria and polydipsia. New onset diabetes with HHS vs. DKA. ED course: 23.5 units IV insulin, 4 mg IV Zofran, 2.5 L normal saline bolus, insulin drip Neuro: Alert and oriented x3 Cardiac/Vascular PMHx: HTN Holding home anti-hypertensives in setting of fluid loss from polyuria and nausea vomiting resulting in BUBBA Pulm: Oxygenating well on room air GI: Diabetic diet Renal/Lytes BUBBA on arrival secondary to polyuria and vomiting causing pre-renal volume depletion Sodium WNL today s/p volume replacement with IVFs Venegas - No Endo: New onset diabetes with HHS vs. DKA No ketones on UA favors HHS A1C = 12.9 He was transitioned off of insulin infusion yesterday, with rebound hyperglycemia after turned off with values 238-296 Fasting this AM was 359, suspect basal deficiency, and agree with pharmacist recs to increase lantus dose today Basal insulin of Lantus 30 units this morning, 15 for lunch, scale for dinner Bolus insulin - Novolog per scale ACHS or q6H while NPO. Goal Range 120-160 mg/dl. CF of 20 mg/dl/unit Carb ratio 1unit:6 grams CHO. Heme: No acute concerns ID: No current concerns for infection Lines: Peripheral IVs CODE STATUS: Full DVT prophylaxis: SCDs Disposition: Stable for downgrade out of ICU today. (3) BUBBA (acute kidney injury): (4) Dehydration: (5) Hypertension: (6) Hyponatremia: (7) Hypercalcemia: (8) Diabetes mellitus, new onset: Supervising Physician Co-Signing Physician Notes Dr. Carrillo was resident physician during care of patient. I separately evaluated patient for elliott portions of the history and the exam. I was present during the critical portion of medical decision making, and I discussed the case with the resident. I generally agree with the findings and plan. Patient has transitioned off of the insulin infusion, globally he is significantly improved stable for downgrade out of the ICU at this time. We are increasing his basal insulin as he had rebound hyperglycemia. Patient was discussed in multidisciplinary rounds. Subjective Mr. Bhatia feels improved this morning without nausea or vomiting actively in the AM. No acute events were reported overnight. He denies chest pain, shortness of breath. He reports history of polyuria and polydispia at home prior to [facility] admission to hospital. He does endorse a significant family history of diabetes, but has no prior past medical history of diabetes. Review of Systems Review of Systems: All systems reviewed & are unremarkable except as noted in HPI & below Constitutional: no fever and no chills Eyes: no diplopia and no photophobia Ear, Nose, Mouth, Throat: no nasal discharge and no epistaxis Respiratory: no cough and no dyspnea Cardiovascular: no chest pain and no chest pain at rest Gastrointestinal: no abdominal pain and no vomiting Genitourinary: no dysuria and no difficulty urinating Physical Exam Constitutional: WD/WN, vitals as above cooperative and comfortable appears fatigued Eyes: + anicteric sclerae and PERRL ENMT: external ear and nose normal, oropharynx normal Neck: normal visual inspection and trachea midline Respiratory: normal respiratory effort, lungs clear to auscultation Cardiovascular: RRR, no murmur, no edema Gastrointestinal (Abdomen): Percussion/Palpation: abdomen soft; abdomen nontender, no guarding and abdomen not rigid Musculoskeletal: Head/Neck/Chest: normocephalic and head atraumatic Skin: no rashes, warm and dry Neurologic: moves all extremities and awake Psychiatric: A+Ox3, euthymic affect Results & Data Vital Signs (Past 12 Hours) Vital Signs Temp Pulse Resp BP Pulse Ox 02/15/19 06:00 61 18 109/69 96 02/15/19 05:00 62 20 96/69 L 95 02/15/19 04:00 36.8 C 56 L 20 115/67 98 02/15/19 03:00 63 17 98/61 L 96 02/15/19 02:00 59 L 16 107/65 96 02/15/19 01:00 64 14 119/71 97 02/15/19 00:00 36.6 C 80 15 114/81 99 02/14/19 23:00 62 20 113/92 97 02/14/19 21:00 73 23 151/101 H 94 Laboratory Results Laboratory Results - last 24 hr 02/13/19 02/14/19 02/14/19 18:22 12:28 13:28 WBC RBC Hgb Hct MCV MCH MCHC RDW Std Deviation RDW Coeff of Amparo Plt Count MPV Immature Gran % (Auto) Neut % (Auto) Lymph % (Auto) [place] % (Auto) Eos % (Auto) Baso % (Auto) Immature Gran # (Auto) Neut # (Auto) Lymph # (Auto) [place] # (Auto) Eos # (Auto) Baso # (Auto) Sodium Potassium Chloride Carbon Dioxide Anion Gap BUN Creatinine Est Cr Clr Drug Dosing Est GFR ( Amer) Est GFR (Non-Af Amer) BUN/Creatinine Ratio Glucose POC Glucose 233 H 212 H Estimat Average Glucose 324 Hemoglobin A1c 12.9 H Calcium Phosphorus Magnesium Beta-Hydroxybutyric Acd 02/14/19 02/14/19 02/15/19 16:29 20:50 04:15 WBC 8.42 RBC 4.32 L Hgb 13.9 L Hct 39.5 L MCV 91.4 D MCH 32.2 MCHC 35.2 RDW Std Deviation 40.4 RDW Coeff of Amparo 11.9 Plt Count 222 MPV 11.1 H Immature Gran % (Auto) 0.2 Neut % (Auto) 49.7 Lymph % (Auto) 42.9 [place] % (Auto) 5.7 Eos % (Auto) 1.1 Baso % (Auto) 0.4 Immature Gran # (Auto) 0.02 Neut # (Auto) 4.19 Lymph # (Auto) 3.61 H [place] # (Auto) 0.48 Eos # (Auto) 0.09 Baso # (Auto) 0.03 Sodium Potassium Chloride Carbon Dioxide Anion Gap BUN Creatinine Est Cr Clr Drug Dosing Est GFR ( Amer) Est GFR (Non-Af Amer) BUN/Creatinine Ratio Glucose POC Glucose 238 H 296 H Estimat Average Glucose Hemoglobin A1c Calcium Phosphorus Magnesium Beta-Hydroxybutyric Acd 02/15/19 02/15/19 02/15/19 04:15 07:03 11:03 WBC RBC Hgb Hct MCV MCH MCHC RDW Std Deviation RDW Coeff of Amparo Plt Count MPV Immature Gran % (Auto) Neut % (Auto) Lymph % (Auto) [place] % (Auto) Eos % (Auto) Baso % (Auto) Immature Gran # (Auto) Neut # (Auto) Lymph # (Auto) [place] # (Auto) Eos # (Auto) Baso # (Auto) Sodium 136 D Potassium 3.6 Chloride 99 Carbon Dioxide 28 Anion Gap 9.0 BUN 20 H Creatinine 1.10 Est Cr Clr Drug Dosing 102.3 Est GFR ( Amer) 103.9 Est GFR (Non-Af Amer) 89.6 BUN/Creatinine Ratio 18.4 Glucose 332 H* POC Glucose 325 H* 359 H* Estimat Average Glucose Hemoglobin A1c Calcium 8.8 Phosphorus 2.4 L Magnesium 2.0 Beta-Hydroxybutyric Acd 23.10 H 02/15/19 11:04 WBC RBC Hgb Hct MCV MCH MCHC RDW Std Deviation RDW Coeff of Amparo Plt Count MPV Immature Gran % (Auto) Neut % (Auto) Lymph % (Auto) [place] % (Auto) Eos % (Auto) Baso % (Auto) Immature Gran # (Auto) Neut # (Auto) Lymph # (Auto) [place] # (Auto) Eos # (Auto) Baso # (Auto) Sodium Potassium Chloride Carbon Dioxide Anion Gap BUN Creatinine Est Cr Clr Drug Dosing Est GFR ( Amer) Est GFR (Non-Af Amer) BUN/Creatinine Ratio Glucose POC Glucose 359 H* Estimat Average Glucose Hemoglobin A1c Calcium Phosphorus Magnesium Beta-Hydroxybutyric Acd Medications Administered Amlodipine Besylate (Norvasc) 10 mg PO QAM ON LICENSE OF [facility] Stop: 03/15/19 23:19 Last Admin: 02/15/19 08:07 Dose: 10 mg Documented by: [id number] Admin: 02/14/19 09:40 Dose: 10 mg Documented by: [id number] Admin: 02/13/19 23:56 Dose: Not Given Documented by: [id number] Heparin Sodium (Porcine) (Heparin Sodium (Porcine)) 5,000 units SQ Q12 [facility]LOE Stop: 03/16/19 20:59 Last Admin: 02/15/19 08:07 Dose: 5,000 units Documented by: [id number] Cosigned by: [id number] Admin: 02/14/19 20:56 Dose: 5,000 units Documented by: [id number] Cosigned by: [id number] Insulin Aspart (Novolog Flexpen) 0 units SC ACHS CHLOE Stop: 03/16/19 16:29 Last Admin: 02/15/19 12:00 Dose: 20 units Documented by: [id number] Cosigned by: [id number] Admin: 02/15/19 08:38 Dose: 9 units Documented by: [id number] Cosigned by: [id number] Admin: 02/15/19 05:49 Dose: 9 units Documented by: [id number] Cosigned by: [id number] Admin: 02/14/19 21:00 Dose: 7 units Documented by: [id number] Cosigned by: [id number] Admin: 02/14/19 16:59 Dose: 7 units Documented by: [id number] Cosigned by: [id number] Insulin Glargine (Lantus Solostar Pen) 0 units SC BID CHLOE; Protocol Stop: 03/16/19 20:59 Last Admin: 02/15/19 08:07 Dose: 30 units Documented by: [id number] Cosigned by: [id number] Admin: 02/14/19 20:58 Dose: 20 units Documented by: [id number] Cosigned by: [id number] Metoprolol Tartrate (Lopressor) 12.5 mg PO BID ON LICENSE OF [facility] Stop: 03/16/19 16:39 Last Admin: 02/15/19 08:07 Dose: 12.5 mg Documented by: [id number] Admin: 02/14/19 20:57 Dose: 12.5 mg Documented by: [id number] Admin: 02/14/19 17:26 Dose: 12.5 mg Documented by: [id number] PG Care Time/CCT Total # of Minutes Spent Total Time Spent with Patient: Total time spent is greater than 50% in coordination of care (as documented) at patient's floor/unit and/or counseling patient: Resident Activity Tracking Resident Involvement: Resident Care Provided Care Provided: Adult Hospital Medicine (ICU) (1) DKA (diabetic ketoacidoses) Diabetes mellitus complication detail: without coma Diabetes mellitus type: type 2 Qualified Code(s): E11.10 - Type 2 diabetes mellitus with ketoacidosis without coma
--- NOTE | 2019-02-15 09:28 | Family Medicine Progress Note ---
Date of Service February 15, 2019 Assessment & Plan (1) DKA (diabetic ketoacidoses): 28 yo M PMHx HTN here for treatment of DKA vs. HHS in new-onset diabetic. Now with glucose in normal range, resolving BUBBA, and resolving electrolyte abnormalities. Hyperglycemia -ED course: 23.5 units IV insulin, 4 mg IV Zofran, 2.5 L normal saline bolus, insulin drip -Clinical picture and laboratory values suggest DKA vs. HHS. -Glucose level 1747 on admission, with an elevated anion gap of 16, and beta hydroxybutyric acid of 17.98 -Last POC glucose 129 with closing gap of 6. -Insulin Regimen Per Pharmacy: -Lantus 25u x1 now to help convert him off the insulin infsn -NovoLog per scale ACHS or Q6hrs while NPO -Goal Range: Low 140 mg/dL - High 180 mg/dL -Correction Factor: 20 mg/dL/unit -Nutritional / Prandial insulin per carb ratio of 1 unit per 6 grams CHO consumed -ICU d/c'ed IV fluids, transition to DM2 diet. -HbA1c ordered in ED and pending. -Myself and Dr. Strickland had extensive discussion with the patient regarding what dietary choices brought him to this point and what dietary choices moving forward will help him get control of his sugars. -Will schedule outpatient follow up with myself (Dr. Montesinos) at the [facility] following discharge for further management of his DM2. Pt is without PCP at this time. Hyponatremia -Sodium level 147, corrected for hyperglycemia to 147 given near-normal Glu at this time. -Currently on D5 1/2NSS 150mL/hr with 20 meq K. -Trend BMP every 4 hours, following corrected sodium, in addition to magnesium and phosphorus level Acute Kidney Injury -Creatinine increased to 2.74 on admission from baseline of approximately 1.0; now with Cr 1.38. -Suspect this was related to prerenal etiology in the setting of severe dehydration, and is resolving appropriately with hydration. -Continue PO hydration, and trend BMP. -Hold home chlorthalidone and lisinopril. Hypertension -Holding home chlorthalidone and lisinopril as above. -Currently on amlodipine 10mg qAM. BP normotensive. CODE STATUS: Full FEN: DM2 diet DVT prophylaxis: SCDs Disposition: ICU (2) Hyperglycemia: Mr. Bhatia is a 28-year-old male with a past medical history of hypertension who presented to the emergency department due to a one-week history of polyuria and polydipsia. ED course: 23.5 units IV insulin, 4 mg IV Zofran, 2.5 L normal saline bolus, insulin drip -Admit to ICU -Clinical picture and laboratory values consistent with diabetic ketoacidosis & new onset diabetes mellitus -Glucose level 1747 on admission, with an elevated anion gap of 16, and beta hydroxybutyric acid of 17.98 -Received 2.5 L normal saline bolus in the ER, 23.5 units of IV insulin, and was started on an insulin drip -Will continue insulin drip until glucose level is <200 -Q1h glucose checks -Calculated free water deficit is approximately 10.4 L -We will continue aggressive IV fluid rehydration -HbA1c ordered in ED and pending Hyponatremia -Sodium level 113, corrected to 145 -Start IV fluids with 250 mLs/hour of half-normal saline -Trend BMP every 4 hours, following corrected sodium, in addition to magnesium and phosphorus level -We will add 20 of KCl to IV fluids if repeat BMP at 10PM reveals a drop in potassium (potassium 4.8 on admission) Acute Kidney Injury -Creatinine increased to 2.74 on admission, increased from baseline level of approx 1 -Suspect this is related to prerenal etiology in the setting of severe dehydration -Continue aggressive IV fluid rehydration, and trend BMP every 4 hours -Hold home chlorthalidone and lisinopril Hypertension -Holding home chlorthalidone and lisinopril as above CODE STATUS: Full DVT prophylaxis: SCDs Disposition: Admit to ICU (3) BUBBA (acute kidney injury): (4) Dehydration: (5) Hypertension: (6) Hyponatremia: (7) Hypercalcemia: (8) Diabetes mellitus, new onset: Subjective Pt continues to feel well this morning, has not had any continued high blood sugar type symptoms over night; has received 82 units of insulin over the last 24 hours, (32 short acting and 50 long acting); tolerating meals well and following the diabetic diet recommendations Review of Systems Constitutional: + fatigue; no fever and no chills Eyes: no blurry vision. Wears glasses at baseline but feels that the blurry vision he had yesterday is much better. Gastrointestinal: bowel movement this AM, regular consistency Genitourinary: no dysuria, no urinary frequency (urinated twice overnight) and no urinary incontinence Physical Exam Constitutional: well developed and well nourished; no acute distress Eyes: PERRL, conjunctivae normal, anicteric sclerae Respiratory: normal respiratory effort, lungs clear to auscultation Cardiovascular: RRR, no murmur, no edema Gastrointestinal (Abdomen): normal bowel sounds, soft, nontender, no hepatosplenomegaly Results & Data Vital Signs (Past 12 Hours) Vital Signs Temp Pulse Pulse Resp BP BP Pulse Ox 02/15/19 08:00 36.0 C L 61 78 20 103/78 96 02/15/19 06:00 61 18 109/69 96 02/15/19 05:00 62 20 96/69 L 95 02/15/19 04:00 36.8 C 56 L 20 115/67 98 02/15/19 03:00 63 17 98/61 L 96 02/15/19 02:00 59 L 16 107/65 96 02/15/19 01:00 64 14 119/71 97 02/15/19 00:00 36.6 C 80 15 114/81 99 02/14/19 23:00 62 20 113/92 97 Laboratory Results 02/15/19 02/15/19 02/15/19 Range/Units 07:03 04:15 04:15 WBC 8.42 (4.8-10.8) K/uL RBC 4.32 L (4.7-6.1) M/uL Hgb 13.9 L (14.0-18.0) g/dL Hct 39.5 L (42-52) % MCV 91.4 D (80-100) fL MCH 32.2 (25-34) pg MCHC 35.2 (32-36) g/dL RDW Std Deviation 40.4 (36.4-46.3) fL RDW Coeff of Amparo 11.9 (11.5-14.5) % Plt Count 222 (130-400) K/uL MPV 11.1 H (7.4-10.4) fL Immature Gran % (Auto) 0.2 % Neut % (Auto) 49.7 % Lymph % (Auto) 42.9 % Holt % (Auto) 5.7 % Eos % (Auto) 1.1 % Baso % (Auto) 0.4 % Immature Gran # (Auto) 0.02 (0.00-0.02) K/uL Neut # (Auto) 4.19 (1.4-6.5) K/uL Lymph # (Auto) 3.61 H (1.2-3.4) K/uL Holt # (Auto) 0.48 (0.11-0.59) K/uL Eos # (Auto) 0.09 (0-0.5) K/uL Baso # (Auto) 0.03 (0-0.2) K/uL Sodium 136 D (136-145) mmol/L Potassium 3.6 (3.5-5.1) mmol/L Chloride 99 (98-107) mmol/L Carbon Dioxide 28 (21-32) mmol/L Anion Gap 9.0 (3-11) BUN 20 H (7-18) mg/dl Creatinine 1.10 (0.6-1.4) mg/dl Est Cr Clr Drug Dosing 102.3 ml/min Est GFR ( Amer) 103.9 Est GFR (Non-Af Amer) 89.6 BUN/Creatinine Ratio 18.4 (10-20) Glucose 332 H* (70-99) mg/dl POC Glucose 325 H* (70-99) Estimat Average Glucose mg/dl Hemoglobin A1c (4.5-5.6) % Calcium 8.8 (8.5-10.1) mg/dl Phosphorus 2.4 L (2.5-4.9) mg/dl Magnesium 2.0 (1.8-2.4) mg/dl Beta-Hydroxybutyric Acd 23.10 H (0.2-2.81) mg/dl 02/14/19 02/14/19 02/14/19 Range/Units 20:50 16:29 13:28 WBC (4.8-10.8) K/uL RBC (4.7-6.1) M/uL Hgb (14.0-18.0) g/dL Hct (42-52) % MCV (80-100) fL MCH (25-34) pg MCHC (32-36) g/dL RDW Std Deviation (36.4-46.3) fL RDW Coeff of Amparo (11.5-14.5) % Plt Count (130-400) K/uL MPV (7.4-10.4) fL Immature Gran % (Auto) % Neut % (Auto) % Lymph % (Auto) % Holt % (Auto) % Eos % (Auto) % Baso % (Auto) % Immature Gran # (Auto) (0.00-0.02) K/uL Neut # (Auto) (1.4-6.5) K/uL Lymph # (Auto) (1.2-3.4) K/uL Holt # (Auto) (0.11-0.59) K/uL Eos # (Auto) (0-0.5) K/uL Baso # (Auto) (0-0.2) K/uL Sodium (136-145) mmol/L Potassium (3.5-5.1) mmol/L Chloride (98-107) mmol/L Carbon Dioxide (21-32) mmol/L Anion Gap (3-11) BUN (7-18) mg/dl Creatinine (0.6-1.4) mg/dl Est Cr Clr Drug Dosing ml/min Est GFR ( Amer) Est GFR (Non-Af Amer) BUN/Creatinine Ratio (10-20) Glucose (70-99) mg/dl POC Glucose 296 H 238 H 212 H (70-99) Estimat Average Glucose mg/dl Hemoglobin A1c (4.5-5.6) % Calcium (8.5-10.1) mg/dl Phosphorus (2.5-4.9) mg/dl Magnesium (1.8-2.4) mg/dl Beta-Hydroxybutyric Acd (0.2-2.81) mg/dl 02/14/19 02/14/19 02/14/19 Range/Units 12:28 10:44 10:29 WBC (4.8-10.8) K/uL RBC (4.7-6.1) M/uL Hgb (14.0-18.0) g/dL Hct (42-52) % MCV (80-100) fL MCH (25-34) pg MCHC (32-36) g/dL RDW Std Deviation (36.4-46.3) fL RDW Coeff of Amparo (11.5-14.5) % Plt Count (130-400) K/uL MPV (7.4-10.4) fL Immature Gran % (Auto) % Neut % (Auto) % Lymph % (Auto) % Holt % (Auto) % Eos % (Auto) % Baso % (Auto) % Immature Gran # (Auto) (0.00-0.02) K/uL Neut # (Auto) (1.4-6.5) K/uL Lymph # (Auto) (1.2-3.4) K/uL Holt # (Auto) (0.11-0.59) K/uL Eos # (Auto) (0-0.5) K/uL Baso # (Auto) (0-0.2) K/uL Sodium 147 H (136-145) mmol/L Potassium 3.5 (3.5-5.1) mmol/L Chloride 108 H (98-107) mmol/L Carbon Dioxide 31 (21-32) mmol/L Anion Gap 8.0 (3-11) BUN 33 H (7-18) mg/dl Creatinine 1.38 (0.6-1.4) mg/dl Est Cr Clr Drug Dosing 81.6 ml/min Est GFR ( Amer) 79.0 Est GFR (Non-Af Amer) 68.1 BUN/Creatinine Ratio 24.2 H (10-20) Glucose 136 H (70-99) mg/dl POC Glucose 233 H 140 H (70-99) Estimat Average Glucose mg/dl Hemoglobin A1c (4.5-5.6) % Calcium 9.7 (8.5-10.1) mg/dl Phosphorus 2.4 L D (2.5-4.9) mg/dl Magnesium 2.3 (1.8-2.4) mg/dl Beta-Hydroxybutyric Acd (0.2-2.81) mg/dl 02/14/19 02/14/19 02/13/19 Range/Units 09:31 08:32 18:22 WBC (4.8-10.8) K/uL RBC (4.7-6.1) M/uL Hgb (14.0-18.0) g/dL Hct (42-52) % MCV (80-100) fL MCH (25-34) pg MCHC (32-36) g/dL RDW Std Deviation (36.4-46.3) fL RDW Coeff of Amparo (11.5-14.5) % Plt Count (130-400) K/uL MPV (7.4-10.4) fL Immature Gran % (Auto) % Neut % (Auto) % Lymph % (Auto) % Holt % (Auto) % Eos % (Auto) % Baso % (Auto) % Immature Gran # (Auto) (0.00-0.02) K/uL Neut # (Auto) (1.4-6.5) K/uL Lymph # (Auto) (1.2-3.4) K/uL Holt # (Auto) (0.11-0.59) K/uL Eos # (Auto) (0-0.5) K/uL Baso # (Auto) (0-0.2) K/uL Sodium (136-145) mmol/L Potassium (3.5-5.1) mmol/L Chloride (98-107) mmol/L Carbon Dioxide (21-32) mmol/L Anion Gap (3-11) BUN (7-18) mg/dl Creatinine (0.6-1.4) mg/dl Est Cr Clr Drug Dosing ml/min Est GFR ( Amer) Est GFR (Non-Af Amer) BUN/Creatinine Ratio (10-20) Glucose (70-99) mg/dl POC Glucose 131 H 119 H (70-99) Estimat Average Glucose 324 mg/dl Hemoglobin A1c 12.9 H (4.5-5.6) % Calcium (8.5-10.1) mg/dl Phosphorus (2.5-4.9) mg/dl Magnesium (1.8-2.4) mg/dl Beta-Hydroxybutyric Acd (0.2-2.81) mg/dl Medications Administered Current Inpatient Medications Amlodipine Besylate (Norvasc) 10 mg PO QAM [facility] Stop: 03/15/19 23:19 Last Admin: 02/15/19 08:07 Dose: 10 mg Documented by: Dextrose (Dextrose 50%) 25 - 50 ml IV UD PRN; Protocol PRN Reason: Hypoglycemia Protocol Stop: 03/15/19 19:21 Glucagon (Glucagen) 1 mg SQ UD PRN; Protocol PRN Reason: Hypoglycemia Protocol Stop: 03/15/19 19:21 Glucose (Dex4 Glucose) 4 - 8 tabs PO UD PRN; Protocol PRN Reason: Hypoglycemia Protocol Stop: 03/15/19 19:21 Glucose (Glucose 40%) 15 - 30 gm PO UD PRN; Protocol PRN Reason: Hypoglycemia Protocol Stop: 03/15/19 19:21 Heparin Sodium (Porcine) (Heparin Sodium (Porcine)) 5,000 units SQ Q12 [facility] Stop: 03/16/19 20:59 Last Admin: 02/15/19 08:07 Dose: 5,000 units Documented by: Insulin Aspart (Novolog Flexpen) 0 units SC ACHS [facility] Stop: 03/16/19 16:29 Last Admin: 02/15/19 08:38 Dose: 9 units Documented by: Insulin Glargine (Lantus Solostar Pen) 0 units SC BID [facility]; Protocol Stop: 03/16/19 20:59 Last Admin: 02/15/19 08:07 Dose: 30 units Documented by: Metoprolol Tartrate (Lopressor) 12.5 mg PO BID [facility] Stop: 03/16/19 16:39 Last Admin: 02/15/19 08:07 Dose: 12.5 mg Documented by: Miscellaneous (Carbohydrates For Hypoglycemia) 15 - 30 gm PO UD PRN PRN Reason: Hypoglycemia Protocol Stop: 03/15/19 19:21 Miscellaneous (Icu Protocol For Hyperglycemia) 1 ea N/A PRN PRN; Protocol PRN Reason: Hyperglycemia Protocol Stop: 02/15/19 23:37 Miscellaneous Information (Consult Glycemic Management Pharmacy) 1 ea N/A UD PRN PRN Reason: Consult Stop: 03/15/19 23:42 PG Care Time/CCT Total # of Minutes Spent Total Time Spent with Patient: Total time spent is greater than 50% in coordination of care (as documented) at patient's floor/unit and/or counseling patient: Resident Activity Tracking Resident Involvement: Resident Care Provided Care Provided: Adult Hospital Medicine (1) DKA (diabetic ketoacidoses) Diabetes mellitus complication detail: without coma Diabetes mellitus type: type 2 Qualified Code(s): E11.10 - Type 2 diabetes mellitus with ketoacidosis without coma
[2019-02-15] MEDS ORDERED: INSULIN HUMAN REGULAR PER UNIT 5 UNITS in SYRINGE 4.95 ML IV ONE (11:15)
[2019-02-15] MEDS ORDERED: INSULIN GLARGINE SOLOSTAR 100 UNITS/ML 3 ML PEN SC ONE (11:30)
--- NOTE | 2019-02-15 12:06 | Pharmacy Report ---
Pharmacy Glycemic Short Note 2 - Date of Service February 15, 2019 - Glycemic Short BSG Results (Last 24 hours): 02/14/19 02/14/19 02/14/19 12:28 13:28 16:29 Glucose POC Glucose 233 H 212 H 238 H 02/14/19 02/15/19 02/15/19 20:50 04:15 07:03 Glucose 332 H* POC Glucose 296 H 325 H* 02/15/19 02/15/19 11:03 11:04 Glucose POC Glucose 359 H* 359 H* OUTPATIENT ANTIDIABETIC REGIMEN: * N/A * A1c 12.9% ASSESSMENT: * Patient transitioned off of insulin infusion yesterday, BSGs elevated after drip turned off 238-296 * Fasting this morning 359, drip was running at 6 units/hr prior to being held/shut off, suspect patient still basal deficient, increase lantus dose today * AM blood sugar corrected from BMP- premeal check at 0700 325, only breakfast carbs covered when called at 0830, no new BSG/corrected earlier wanted to prevent stacking, expected lunch BSG to be elevated due to this * Lunch BSG 359- will give 5 unit IV bolus +novolog, and give an additional lantus dose at lunch * Due to these changes will continue current correction/meal coverage, however may need to tighten with dinner or consider starting insulin infusion if BSGs continue to be significantly elevated. PLAN FOR INPATIENT GLYCEMIC CONTROL: * Hold outpatient oral diabetes medications * Basal insulin * Lantus 30 units this morning, 15 units with lunch, scale for dinner (up to 30 additional units) * Bolus insulin * NovoLog per scale ACHS or Q6hrs while NPO * Goal Range: Low 120 mg/dL - High 160 mg/dL * Correction Factor: 20 mg/dL/unit * Nutritional / Prandial insulin per carb ratio of 1 unit per 6 grams CHO consumed PLAN FOR DISCHARGE: * to follow
--- NOTE | 2019-02-15 14:40 | Hospitalist Progress Note ---
Date of Service February 15, 2019 Assessment & Plan (1) DKA (diabetic ketoacidoses): 28 yo M PMHx HTN here for treatment of DKA vs. HHS in new-onset diabetic. resolving BUBBA, and resolving electrolyte abnormalities. Hyperglycemia -Clinical picture and laboratory values suggest DKA vs. HHS. -Glucose level 1747 on admission, with an elevated anion gap of 16, and beta hydroxybutyric acid of 17.98 -Last POC glucose 335 -Insulin Regimen Per Pharmacy: -Lantus 30u x1 this AM -has received 32u of novolog in the last 24hours -Will schedule outpatient follow up with Dr. Montesinos at the [facility] following discharge for further management of his DM2. Pt is without PCP at this time. Hyponatremia -Sodium level 136 -Currently on D5 1/2NSS 150mL/hr with 20 meq K. -Trend BMP daily, following corrected sodium, in addition to magnesium and phosphorus level Acute Kidney Injury -Creatinine increased to 2.74 on admission from baseline of approximately 1.0; now with Cr 1.1. -Suspect this was related to prerenal etiology in the setting of severe dehydration, and is resolving appropriately with hydration. -Continue PO hydration, and trend BMP. -Hold home chlorthalidone and lisinopril. Hypertension -Holding home chlorthalidone and lisinopril as above. -Currently on amlodipine 10mg qAM. BP normotensive. CODE STATUS: Full FEN: DM2 diet DVT prophylaxis: SCDs Disposition: ICU (2) Hyperglycemia: (3) BUBBA (acute kidney injury): (4) Dehydration: (5) Hypertension: (6) Hyponatremia: (7) Hypercalcemia: (8) Diabetes mellitus, new onset: Supervising Physician Co-Signing Physician Notes I saw the patient with the resident physician and confirmed elliott portions of the history and physical exam. The patient is without complaints. At the time of examination he was still in the ICU. Electrolytes are normal with exception of a phosphorus of 2.4. Potassium is 2.6, sodium 136. We will transfer to medical floor today. Diabetes education over the next 24 hours and hopeful that we can discharge in a.m. If glucose levels acceptable. Subjective Pt continues to feel well this morning, has not had any continued high blood sugar type symptoms over night; has received 82 units of insulin over the last 24 hours, (32 short acting and 50 long acting); tolerating meals well and following the diabetic diet recommendations Review of Systems Eyes: no blurry vision. Wears glasses at baseline but feels that the blurry vision he had prior is much better. Gastrointestinal: bowel movement this AM, regular consistency Physical Exam Constitutional: well developed and well nourished; no acute distress Eyes: PERRL, conjunctivae normal, anicteric sclerae Respiratory: normal respiratory effort, lungs clear to auscultation Cardiovascular: RRR, no murmur, no edema Gastrointestinal (Abdomen): normal bowel sounds, soft, nontender, no hepatosplenomegaly Results & Data Vital Signs (Past 12 Hours) Vital Signs Temp Pulse Pulse Resp BP BP Pulse Ox 02/15/19 13:17 107 H 02/15/19 11:01 89 22 99 02/15/19 11:00 36.6 C 86 74 22 138/104 H 138/104 H 100 02/15/19 10:30 84 19 139/95 98 02/15/19 10:00 73 20 97 02/15/19 09:01 83 16 96 02/15/19 09:00 89 14 146/97 H 96 02/15/19 08:04 94 02/15/19 08:00 36.0 C L 61 78 20 103/78 96 02/15/19 07:01 56 L 28 H 97 02/15/19 07:00 59 L 28 H 103/72 97 02/15/19 06:00 61 18 109/69 96 02/15/19 05:00 62 20 96/69 L 95 02/15/19 04:00 36.8 C 56 L 20 115/67 98 02/15/19 03:00 63 17 98/61 L 96 Laboratory Results 02/15/19 02/15/19 02/15/19 Range/Units 11:04 11:03 07:03 WBC (4.8-10.8) K/uL RBC (4.7-6.1) M/uL Hgb (14.0-18.0) g/dL Hct (42-52) % MCV (80-100) fL MCH (25-34) pg MCHC (32-36) g/dL RDW Std Deviation (36.4-46.3) fL RDW Coeff of Amparo (11.5-14.5) % Plt Count (130-400) K/uL MPV (7.4-10.4) fL Immature Gran % (Auto) % Neut % (Auto) % Lymph % (Auto) % Benton % (Auto) % Eos % (Auto) % Baso % (Auto) % Immature Gran # (Auto) (0.00-0.02) K/uL Neut # (Auto) (1.4-6.5) K/uL Lymph # (Auto) (1.2-3.4) K/uL Benton # (Auto) (0.11-0.59) K/uL Eos # (Auto) (0-0.5) K/uL Baso # (Auto) (0-0.2) K/uL Sodium (136-145) mmol/L Potassium (3.5-5.1) mmol/L Chloride (98-107) mmol/L Carbon Dioxide (21-32) mmol/L Anion Gap (3-11) BUN (7-18) mg/dl Creatinine (0.6-1.4) mg/dl Est Cr Clr Drug Dosing ml/min Est GFR ( Amer) Est GFR (Non-Af Amer) BUN/Creatinine Ratio (10-20) Glucose (70-99) mg/dl POC Glucose 359 H* 359 H* 325 H* (70-99) Estimat Average Glucose mg/dl Hemoglobin A1c (4.5-5.6) % Calcium (8.5-10.1) mg/dl Phosphorus (2.5-4.9) mg/dl Magnesium (1.8-2.4) mg/dl Beta-Hydroxybutyric Acd (0.2-2.81) mg/dl 02/15/19 02/15/19 02/14/19 Range/Units 04:15 04:15 20:50 WBC 8.42 (4.8-10.8) K/uL RBC 4.32 L (4.7-6.1) M/uL Hgb 13.9 L (14.0-18.0) g/dL Hct 39.5 L (42-52) % MCV 91.4 D (80-100) fL MCH 32.2 (25-34) pg MCHC 35.2 (32-36) g/dL RDW Std Deviation 40.4 (36.4-46.3) fL RDW Coeff of Amparo 11.9 (11.5-14.5) % Plt Count 222 (130-400) K/uL MPV 11.1 H (7.4-10.4) fL Immature Gran % (Auto) 0.2 % Neut % (Auto) 49.7 % Lymph % (Auto) 42.9 % Benton % (Auto) 5.7 % Eos % (Auto) 1.1 % Baso % (Auto) 0.4 % Immature Gran # (Auto) 0.02 (0.00-0.02) K/uL Neut # (Auto) 4.19 (1.4-6.5) K/uL Lymph # (Auto) 3.61 H (1.2-3.4) K/uL Benton # (Auto) 0.48 (0.11-0.59) K/uL Eos # (Auto) 0.09 (0-0.5) K/uL Baso # (Auto) 0.03 (0-0.2) K/uL Sodium 136 D (136-145) mmol/L Potassium 3.6 (3.5-5.1) mmol/L Chloride 99 (98-107) mmol/L Carbon Dioxide 28 (21-32) mmol/L Anion Gap 9.0 (3-11) BUN 20 H (7-18) mg/dl Creatinine 1.10 (0.6-1.4) mg/dl Est Cr Clr Drug Dosing 102.3 ml/min Est GFR ( Amer) 103.9 Est GFR (Non-Af Amer) 89.6 BUN/Creatinine Ratio 18.4 (10-20) Glucose 332 H* (70-99) mg/dl POC Glucose 296 H (70-99) Estimat Average Glucose mg/dl Hemoglobin A1c (4.5-5.6) % Calcium 8.8 (8.5-10.1) mg/dl Phosphorus 2.4 L (2.5-4.9) mg/dl Magnesium 2.0 (1.8-2.4) mg/dl Beta-Hydroxybutyric Acd 23.10 H (0.2-2.81) mg/dl 02/14/19 02/13/19 Range/Units 16:29 18:22 WBC (4.8-10.8) K/uL RBC (4.7-6.1) M/uL Hgb (14.0-18.0) g/dL Hct (42-52) % MCV (80-100) fL MCH (25-34) pg MCHC (32-36) g/dL RDW Std Deviation (36.4-46.3) fL RDW Coeff of Amparo (11.5-14.5) % Plt Count (130-400) K/uL MPV (7.4-10.4) fL Immature Gran % (Auto) % Neut % (Auto) % Lymph % (Auto) % Benton % (Auto) % Eos % (Auto) % Baso % (Auto) % Immature Gran # (Auto) (0.00-0.02) K/uL Neut # (Auto) (1.4-6.5) K/uL Lymph # (Auto) (1.2-3.4) K/uL Benton # (Auto) (0.11-0.59) K/uL Eos # (Auto) (0-0.5) K/uL Baso # (Auto) (0-0.2) K/uL Sodium (136-145) mmol/L Potassium (3.5-5.1) mmol/L Chloride (98-107) mmol/L Carbon Dioxide (21-32) mmol/L Anion Gap (3-11) BUN (7-18) mg/dl Creatinine (0.6-1.4) mg/dl Est Cr Clr Drug Dosing ml/min Est GFR ( Amer) Est GFR (Non-Af Amer) BUN/Creatinine Ratio (10-20) Glucose (70-99) mg/dl POC Glucose 238 H (70-99) Estimat Average Glucose 324 mg/dl Hemoglobin A1c 12.9 H (4.5-5.6) % Calcium (8.5-10.1) mg/dl Phosphorus (2.5-4.9) mg/dl Magnesium (1.8-2.4) mg/dl Beta-Hydroxybutyric Acd (0.2-2.81) mg/dl Medications Administered Current Inpatient Medications Amlodipine Besylate (Norvasc) 10 mg PO QAM [facility] Stop: 03/15/19 23:19 Last Admin: 02/15/19 08:07 Dose: 10 mg Documented by: Dextrose (Dextrose 50%) 25 - 50 ml IV UD PRN; Protocol PRN Reason: Hypoglycemia Protocol Stop: 03/15/19 19:21 Glucagon (Glucagen) 1 mg SQ UD PRN; Protocol PRN Reason: Hypoglycemia Protocol Stop: 03/15/19 19:21 Glucose (Dex4 Glucose) 4 - 8 tabs PO UD PRN; Protocol PRN Reason: Hypoglycemia Protocol Stop: 03/15/19 19:21 Glucose (Glucose 40%) 15 - 30 gm PO UD PRN; Protocol PRN Reason: Hypoglycemia Protocol Stop: 03/15/19 19:21 Heparin Sodium (Porcine) (Heparin Sodium (Porcine)) 5,000 units SQ Q12 [facility] Stop: 03/16/19 20:59 Last Admin: 02/15/19 08:07 Dose: 5,000 units Documented by: Insulin Aspart (Novolog Flexpen) 0 units SC ACHS [facility] Stop: 03/16/19 16:29 Last Admin: 02/15/19 12:00 Dose: 20 units Documented by: Insulin Glargine (Lantus Solostar Pen) 0 units SC BID [facility]; Protocol Stop: 03/16/19 20:59 Last Admin: 02/15/19 08:07 Dose: 30 units Documented by: Metoprolol Tartrate (Lopressor) 12.5 mg PO BID [facility] Stop: 03/16/19 16:39 Last Admin: 02/15/19 08:07 Dose: 12.5 mg Documented by: Miscellaneous (Carbohydrates For Hypoglycemia) 15 - 30 gm PO UD PRN PRN Reason: Hypoglycemia Protocol Stop: 03/15/19 19:21 Miscellaneous (Icu Protocol For Hyperglycemia) 1 ea N/A PRN PRN; Protocol PRN Reason: Hyperglycemia Protocol Stop: 02/15/19 23:37 Miscellaneous Information (Consult Glycemic Management Pharmacy) 1 ea N/A UD PRN PRN Reason: Consult Stop: 03/15/19 23:42 PG Care Time/CCT Total # of Minutes Spent Total Time Spent with Patient: Total time spent is greater than 50% in coordination of care (as documented) at patient's floor/unit and/or counseling patient: Resident Activity Tracking Resident Involvement: Resident Care Provided Care Provided: Adult Hospital Medicine (1) DKA (diabetic ketoacidoses) Diabetes mellitus complication detail: without coma Diabetes mellitus type: type 2 Qualified Code(s): E11.10 - Type 2 diabetes mellitus with ketoacidosis without coma
[2019-02-15] MEDS: SODIUM CHLORIDE 0.9% 1000ML 1,000 ML IV SCH (17:02)
[2019-02-16] MEDS: SODIUM CHLORIDE 0.9% 1000ML 1,000 ML IV SCH (01:03)
[2019-02-16] MEDS: INSULIN ASPART 100 UNITS/ML 3 ML PEN SC SCH ×4 (04:31→17:09)
[2019-02-16 07:09] LABS: Hematocrit (blood only) 35.4 % (42-52); Hemoglobin 12.3 g/dL (14.0-18.0); Mean Corpuscular Hemoglobin 31.7 pg (25-34); Mean Corpuscular Hgb Conc 34.7 g/dL (32-36); Mean Corpuscular Volume 91.2 fL (80-100); Mean Platelet Volume 11.4 fL (7.4-10.4); Platelet Count 167 K/uL (130-400); RDW Coefficient of Variation 11.7 % (11.5-14.5); RDW Standard Deviation 38.8 fL (36.4-46.3); Red Blood Count 3.88 M/uL (4.7-6.1)
[2019-02-16] MEDS: METOPROLOL TARTRATE 25 MG TAB PO SCH (07:34)
[2019-02-16] MEDS: AMLODIPINE BESYLATE 5 MG TAB PO SCH (07:35)
[2019-02-16 07:47] LABS: BUN Creatinine Ratio 12.5 (10-20); Calcium 8.4 mg/dl (8.5-10.1); Creatinine Clr Calc Pharmacy 123.1 ml/min; Est GFR (African American) 125.6; Est GFR (Non-African American) 108.4; Magnesium 2.3 mg/dl (1.8-2.4); Potassium 2.9 mmol/L (3.5-5.1)
[2019-02-16] MEDS ORDERED: POTASSIUM CHLORIDE 20 MEQ TABCR PO STA (07:50)
[2019-02-16 08:02] LABS: Eosinophils # (auto) 0.11 K/uL (0-0.5); Eosinophils % (auto) 2.6 %; Immature Granulocytes # (auto) 0.01 K/uL (0.00-0.02); Immature Granulocytes % (auto) 0.2 %; Lymphocytes # (auto) 2.15 K/uL (1.2-3.4); Monocytes # (auto) 0.34 K/uL (0.11-0.59); Monocytes % (auto) 7.9 %; Neutrophils # (auto) 1.69 K/uL (1.4-6.5); Neutrophils % (auto) 39.3 %
[2019-02-16] MEDS: HEPARIN SOD 5,000 UNIT/0.5 ML VIAL SQ SCH (08:22)
[2019-02-16] MEDS ORDERED: INSULIN GLARGINE SOLOSTAR 100 UNITS/ML 3 ML PEN SC ONE (08:30)
--- NOTE | 2019-02-16 10:07 | Pharmacy Report ---
Pharmacy Glycemic Short Note 2 - Date of Service February 16, 2019 - Glycemic Short BSG Results (Last 24 hours): 02/15/19 02/15/19 02/15/19 11:03 11:04 16:23 Glucose POC Glucose 359 H* 359 H* 273 H 02/15/19 02/15/19 02/16/19 20:31 23:48 04:30 Glucose POC Glucose 242 H 189 H 205 H 02/16/19 02/16/19 06:54 07:30 Glucose 208 H POC Glucose 187 H OUTPATIENT ANTIDIABETIC REGIMEN: * N/A * A1c 12.9% - new onset diabetes ASSESSMENT: 02/16/19 * BSGs remained elevated yesterday after drip transition on 02/14/19 * Ranging 189-359 mg/dL * Patient received approximately 110 units of insulin yesterday (45 of which were basal, 5 IV insulin, and the remaining as SC bolus) * Fasting BSG this AM is 187 mg/dL 02/15/19 * Patient transitioned off of insulin infusion yesterday, BSGs elevated after drip turned off 238-296 * Fasting this morning 359, drip was running at 6 units/hr prior to being held/shut off, suspect patient still basal deficient, increase lantus dose today * AM blood sugar corrected from [facility]- premeal check at 0700 325, only breakfast carbs covered when called at 0830, no new BSG/corrected earlier wanted to prevent stacking, expected lunch BSG to be elevated due to this * Lunch BSG 359- will give 5 unit IV bolus +novolog, and give an additional lantus dose at lunch * Due to these changes will continue current correction/meal coverage, however may need to tighten with dinner or consider starting insulin infusion if BSGs continue to be significantly elevated. PLAN FOR INPATIENT GLYCEMIC CONTROL: * Hold outpatient oral diabetes medications * Basal insulin * Lantus 45 units qAM * Bolus insulin * NovoLog per scale ACHS or Q6hrs while NPO * Goal Range: Low 120 mg/dL - High 160 mg/dL * Correction Factor: 15 mg/dL/unit * Nutritional / Prandial insulin per carb ratio of 1 unit per 5 grams CHO consumed PLAN FOR DISCHARGE: * Per early childhood special educator note: Patient would prefer regimen with pre-set Novolog dose with meals * Lantus once daily + Novolog (pre-set dose) + Metformin XR. * At this point, may be reasonable to initiate Lantus 45 units SC daily, Novolog 10 units SC TIDM, and metformin XR titration * Metformin XR titration: 500 mg PO daily with evening meal x 7 days, 500 mg PO BIDM x 7 days, then 500 mg QAM w/breakfast + 1000 mg QPM w/dinner x 7 days, to a maximum dose of 1000 mg PO BIDM * Will continue to follow BSGs and adjust plan accordingly
--- NOTE | 2019-02-16 15:53 | Discharge Summary ---
Date of Service February 16, 2019 Admission HPI Per Admitting Provider Mr. hBatia is a 28-year-old male with a past medical history of hypertension who presented to the emergency department due to a one-week history of polyuria and polydipsia. He denies any abdominal pain, but states that he did have one episode of vomiting last night. He notes that he has been seeking out sugary drinks over the past few days, as he has been craving them. He has no prior history of diabetes, however states that both of his parents are diabetics, as well as his grandparents. He called his parents, who thought that he may be exhibiting symptoms of diabetes, and told him to come to the ER. He is unsure whether his parents have type I or type 2 diabetes, but he states that his mother does inject herself with insulin. He also endorses blurry vision. He reports that he has felt unwell recently, and had a sore throat approximately 2 weeks ago, which has since resolved. He has felt fatigued over the past few days, but denies any fever or chills. 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 From [facility]. Non-smoker, does not use alcohol or recreational drugs. Principal Diagnosis Type 2 Diabetes Mellitus Discharge Exam Constitutional well developed and well nourished Eyes PERRL, conjunctivae normal, anicteric sclerae ENMT external ear and nose normal, oropharynx normal Respiratory normal respiratory effort, lungs clear to auscultation Cardiovascular RRR, no murmur, no edema Gastrointestinal (Abdomen) normal bowel sounds, soft, nontender, no hepatosplenomegaly Discharge Data Allergies Allergy/AdvReac Type Severity Reaction Status Date / Time No Known Drug Allergies AdvReac Verified 02/13/19 18:39 shellfish derived AdvReac Verified 02/13/19 18:39 Consultations 02/13/19 19:25 ED Decision to Admit Stat 02/13/19 23:38 Consult Case Management - Discharge Planning Routine Consult Plating Engineer Routine Hospital Course (1) DKA (diabetic ketoacidoses): 28 yo M PMHx HTN here for treatment of DKA vs. HHS in new-onset diabetic. resolving BUBBA, and resolving electrolyte abnormalities. Hyperglycemia -Clinical picture and laboratory values suggest DKA vs. HHS. -Glucose level 1747 on admission, with an elevated anion gap of 16, and beta hydroxybutyric acid of 17.98 -Will schedule outpatient follow up with Dr. Montesinos at the [facility] following discharge for further management of his DM2. Hyponatremia -resolved Acute Kidney Injury -resolved Hypertension -continue chlorthalidone and lisinopril (2) Hyperglycemia: (3) BUBBA (acute kidney injury): (4) Dehydration: (5) Hypertension: (6) Hyponatremia: (7) Hypercalcemia: (8) Diabetes mellitus, new onset: Total Time Total Time Spent Total Time Spent (In Minutes): Please see attending addendum and attestation Discharge Plan Discharge Items Patient Disposition: Home - Self-Care Reason For Visit: DKA Discharge Diagnosis: Type 2 Diabetes Activity: Per Instructions section Non-emergency contact: Primary Care Provider Call non-emergency contact if: you have any medication questions and your symptoms worsen Follow-up/Referrals: Madisyn Montesinos DO [Resident] - 02/25/19 9:30 am (please bring copy of insurance card and a photo ID with you to the appointment) Diet: Carb Consistent or DM2 Addtl Attending Provider Instructions: You were admitted to the hospital following a persistent increase in urination and subsequent dehydration; during this admission you were diagnosed with Type 2 Diabetes due to the increased sugar in your blood that was minimally responsive to medicines at first but once we fully hydrated you, your blood sugar returned out of the high range that it was and into a more suitable range for longterm treatment. As you are going home, we are continuing the insulin therapy that we found to be most effective while you were in the hospital and adding a medication called Metformin that you will take once a day every day for the next 7 days and then will take twice a day going forward. This medication acts in combination with the insulin to keep your blood sugar closer to the normal ranges. You will have follow-up with Dr. Montesinos on 02/25, and will have follow-up with the diabetes educator in the coming days this week. Pending Studies at Discharge: No Stand-Alone Forms: My [employer], Smoking Cessation Medications and DC Order Prescriptions: New Basaglar KwikPen U-100 Insulin 100 unit/mL (3 mL) insulin pen 30 units SQ DAILY Qty: 15 RF: 0 insulin lispro [Humalog KwikPen Insulin] 100 unit/mL insulin pen 10 units SQ TID Qty: 15 RF: 0 OneTouch Verio strip .ROUTE .MEDSUPPLY Qty: 100 RF: 0 lancets [OneTouch Delica Lancets] 30 gauge misc .ROUTE .MEDSUPPLY Qty: 100 RF: 0 pen needle, diabetic [BD Rekha 2nd Gen Pen Needle] 32 gauge x 5/32" needle .ROUTE .MEDSUPPLY Qty: 100 RF: 0 metformin 500 mg tablet extended release 24 hr 500 mg PO DAILY Qty: 60 RF: 0 Continued lisinopril 20 mg tablet 20 mg PO DAILY Qty: 90 RF: 0 chlorthalidone 25 mg tablet 25 mg PO DAILY Qty: 90 RF: 0 Discharge Orders: Discharge Order (Routine); Ordered 02/16/19 Ordered By: Michael Zelaya Admission Data Admit Date/Time: 02/13/19 21:53 Attending Provider: Odin Rodrigues Admit Provider: Azeb George Primary Care Provider: [facility] Other Providers: Sam Zambrano ; Yunior Schaeffer ; Herbie Strickland Other Interventions: Discharge Summary Assessment (RN) Last Done: 02/16/19 15:45 Supervising Physician Co-Signing Physician Notes I saw the patient with the resident physician and confirmed elliott portions of the history and physical exam. The patient is without complaints. He has had quite a bit of diabetes education and he feels comfortable with both the checking of his blood sugars and the administration of insulin. In fact, he gives himself his own insulin yesterday and today. He has outpatient appointments with a primary care physician as well as diabetes education. He feels quite comfortable with discharge today; he was provided a contact number to call should they have any questions once he returns home. Total time in discharge 25 minutes. Resident Activity Tracking Resident Involvement: Resident Care Provided Care Provided: Adult Hospital Medicine
[2019-02-17] MEDS ORDERED: INSULIN GLARGINE SOLOSTAR 100 UNITS/ML 3 ML PEN SC SCH (09:00)
== END 2019-02-16 18:17 | disposition home or self-care (01) | DRG 638 ==
LOC: ED 17:34 → 1E 21:53 → SUATTDRO 21:53 → 1E 23:07 → 2N 02-15 12:27